=== PATIENT | female | born 1950 | race Caucasian/White ===

== ENCOUNTER 2023-03-11 11:21 | Outpatient (OUT) | payer MEDICARE, OTHER, SELFPAY ==
--- NOTE | 2023-03-11 11:40 | MM_ITS ---
Patient Name: IQRA WALKER MR#: [id number] : 1950 Exam Date: 03/11/2023 Ordering Doctor: Non-Staff Physician RADIOLOGY REPORT PROCEDURE: MM TOMOSYNTHESIS SCREENING RT COMPARISON: MG MAMM SCREEN RT 3D CAD, 02/10/2022. INDICATIONS: screening Calculator Name NCI Breast Cancer Risk Assessment Tool 5 Year Breast Cancer Risk n/a% Lifetime Breast Cancer Risk n/a% Personal Breast Cancer Yes, Left with mastectomy, Age 63 Personal Ovarian Cancer No Treatments None Family Cancers Grandmother-maternal with colon cancer at age 70. LOCATION: [facility] BREAST COMPOSITION: Heterogeneously dense,which may obscure small masses. FINDINGS: DIAGNOSTIC CATEGORY 2--BENIGN FINDING. NO CHANGE FROM COMPARISON. RIGHT BREAST: No significant suspicious finding. Scattered benign-appearing nodules are present. Scattered benign-appearing calcifications are present. RECOMMENDATIONS: ROUTINE MAMMOGRAM AND CLINICAL EVALUATION IN 12 MONTHS. PLEASE NOTE: A NORMAL MAMMOGRAM DOES NOT EXCLUDE THE POSSIBILITY OF BREAST CANCER. A CLINICALLY SUSPICIOUS PALPABLE LUMP SHOULD BE BIOPSIED. Dictated by: Ari Escobar MD on 03/11/2023 at 12:40 Approved by: Ari Escobar MD on 03/11/2023 at 12:41
== END 2023-03-11 11:22 | disposition home or self-care (01) ==
LOC: MAMMO 11:21
DX: Z12.31 Encounter for screening mammogram for malignant neoplasm of breast (principal); Z85.3 Personal history of malignant neoplasm of breast; Z80.0 Family history of malignant neoplasm of digestive organs
CPT/HCPCS: 77063; 77067

== ENCOUNTER 2024-03-13 10:00 | Outpatient (OUT) | payer MEDICARE, OTHER, SELFPAY ==
--- NOTE | 2024-03-13 10:05 | MM_ITS ---
Patient Name: IQRA WALKER MR#: [id number] : 1950 Exam Date: 03/13/2024 Ordering Doctor: Non-Staff Physician RADIOLOGY REPORT PROCEDURE: MM TOMOSYNTHESIS SCREENING RT COMPARISON: MG MAMM SCREEN RT 3D CAD, 02/10/2022. MM TOMOSYNTHESIS SCREENING RT, 03/11/2023. INDICATIONS: Screening Calculator Name NCI Breast Cancer Risk Assessment Tool 5 Year Breast Cancer Risk n/a% Lifetime Breast Cancer Risk n/a% Personal Breast Cancer Yes, Left with mastectomy, Age 63 Personal Ovarian Cancer No Treatments None Family Cancers Grandmother-maternal with colon cancer at age 70. LOCATION: [facility] BREAST COMPOSITION: The breasts are heterogeneously dense,which may obscure small masses. FINDINGS: DIAGNOSTIC CATEGORY 2--BENIGN FINDING. NO CHANGE FROM COMPARISON. Scattered benign-appearing calcifications are present. Scattered benign-appearing lymph nodes are present. RIGHT BREAST: No significant suspicious finding. LEFT BREAST: No significant suspicious finding. RECOMMENDATIONS: ROUTINE MAMMOGRAM AND CLINICAL EVALUATION IN 12 MONTHS. PLEASE NOTE: A NORMAL MAMMOGRAM DOES NOT EXCLUDE THE POSSIBILITY OF BREAST CANCER. A CLINICALLY SUSPICIOUS PALPABLE LUMP SHOULD BE BIOPSIED. Dictated by: Ari Escobar MD on 03/13/2024 at 11:15 Approved by: Ari Escobar MD on 03/13/2024 at 11:16
--- OUTSIDE RECORDS SUMMARY | 2024-03-13 10:06 | XMS_ITS | CCD ---
Author Organization [facility] ion [facility] Care Team Providers Care Instrumental Teacher Name Role Phone BASSEM TATE Admitting Unavailable BASSEM TATE Attending Unavailable YADIRA SEALS Referring Unavailable YADIRA SEALS Primary Care Unavailable EDUIN MARTINEZ Referring Unavailable YADIRA SEALS Primary Care Unavailable SHAVON MEJIA Attending Unavailable Yadira Seals Primary Care Provider Yadira Seals Primary Care Provider Unavailthee Villalba MD, Aline Primary Care Provider [phone] GRIS BORRERO Referring Unavailable NARRA, ALINE Primary Care Unavailable Deejay BERNARD, Aline Primary [facility] RAMIREZ Primary Care Unavailable DR Eduin Malloy Consulting Unavailable NARRA, ALINE Attending Unavailable NARRA, ALINE Admitting Unavailable NARRA, ALINE Consulting Unavailable Toneya , Aline Primary Care Provider ALINE FERRARI Attending Unavailable NARRA, ALINE Referring Unavailable NARRA, ALINE Primary Care Unavailable ALINE FERRARI Attending Unavailable NARRA, ALINE Referring Unavailable NARRA, ALINE Primary Care Unavailable NARRA, ALINE Referring Unavailable NARRA, ALINE Primary Care Unavailable NARRA, ALINE Referring Unavailable NARRA, ALINE Primary Care Unavailable BIALECKIFOXMARYAM Referring Unavailable NARRA, ALINE Primary Care Unavailable NARRA, ALINE Referring Unavailable NARRA, ALINE Primary Care Unavailable NARRA, ALINE Attending Unavailable NARRA, ALINE Referring Unavailable NARRA, ALINE Primary Care Unavailable NARRA, ALINE Referring Unavailable NARRA, ALINE Primary Care Unavailable NARRA, ALINE Attending Unavailable NARRA, ALINE Referring Unavailable NARRA, ALINE Primary Care Unavailable NARRA, ALINE Attending Unavailable NARRA, ALINE Referring Unavailable NARRA, ALINE Primary Care Unavailable Allergies Allergy Classification Reported Allergen(s) Allergy Type Date of Onset Reaction(s) Facility Benzodiazepines (1 source) Midazolam Drug Allergy 3 [facility] Opioid Agonists (1 source) Meperidine Drug Allergy 3 [facility] Penicillins (antibiotic) (1 source) Penicillins Drug Allergy 9 [facility] Sulfonamides (antibiotic) (1 source) Sulfonamides (Antibiotic) Drug Allergy 9 [facility] (11 sources) Penicillins; Translations: [PENICILLINS] Propensity to adverse reactions to drug 4 [place], [place] (6 sources) Sulfonamides (Antibiotic) Propensity to adverse reactions to drug 9 [place], [place] (1 source) Meperidine Drug Allergy 3 [facility] (1 source) Midazolam Drug Allergy 3 [facility] (1 source) Penicillins Drug allergy (disorder) 3 [facility] (1 source) Sulfonamides (Antibiotic) Drug allergy (disorder) 3 [facility] (12 sources) Penicillins Propensity to adverse reactions to drug 4 [facility] (17 sources) Sulfonamides (Antibiotic); Translations: [SULFA (SULFONAMIDE ANTIBIOTICS)] Propensity to adverse reactions to drug 4 [facility] Medications Current Medications Medication Drug Class(es) Dates Sig (Normalized) Sig (Original) acetaminophen 325 mg oral tablet (7 sources) acetaminophen (TYLENOL) 325 MG tablet Take 650 mg by mouth as needed for Pain 0 Active acetaminophen 325 mg / butalbital 50 mg / caffeine 40 mg oral tablet (13 sources) Barbiturate, Central Nervous System Stimulant, Methylxanthine Start: 10-21-2023 take 1 tablet by mouth once daily as needed for headache butalbital-acetami nophen-caff (FIORICET, ESGIC) 50-325-40 mg per tablet Indications: Migraine without aura and without status migrainosus, not intractable TAKE 1 TABLET BY MOUTH ONCE DAILY NEEDED FOR HEADACHE(S) ; DO NOT EXCEED 4 TABLETS A WEEK 48 tablet 1 10/21/2023 Active Start: 12-15-2022 take 1 tablet by nell th once daily as needed for headache cfwjobtdsj-jidqfiudmezif-swte (FIORICET, ESGIC) 50-325-40 mg per tablet Indications: Migraine without aura and without status migrainosus, not intractable TAKE 1 TABLET BY MOUTH ONCE DAILY NEEDED FOR HEADACHE(S) ; DO NOT EXCEED 4 TABLETS A WEEK 48 tablet 1 12/15/2022 Active Start: 02-08-2020 butalbital-estefanía taminophen-caffeine (FIORICET, ESGIC) 50-325-40 MG per tablet Indications: Chronic migraine without aura, with intractable migraine, so stated, with status migrainosus Take one tablet at headache onset. Limit one tablet daily or four tablets in a week 90 tablet 1 02/08/2020 Active amiodarone hydrochloride 200 mg oral tablet (5 sources) Antiarrhythmic take 1 tablet by mouth once daily amiodarone (CORDARONE) 200 MG tablet Take 200 mg by mouth daily 0 Active anastrozole 1 mg oral tablet (6 sources) Aromatase Inhibitor take 1 tablet by mouth once daily anastrozole (ARIMIDEX) 1 MG tablet Take 1 mg by mouth daily 0 Active apixaban 5 mg oral tablet (14 sources) Factor Xa Inhibitor Start: take 1 tablet by mouth in the morning ELIQUIS 5 mg tablet Indications: Atrial flutter with rapid ventricular response (CMS-HCC) TAKE 1 TABLET BY MOUTH IN THE MORNING AND 1 TABLET BEFORE BEDTIME 180 tablet 01/26/2024 Active Start: 09-28-2023 End: 01-26-2024 take 1 tablet by mouth in the morning, then take 1 tablet by mouth at bedtime apixaban (ELIQUIS) 5 mg tablet Indications: Atrial flutter with rapid ventricular response (CMS-HCC) Take 1 tablet (5 mg total) by mouth in the morning and 1 tablet (5 mg total) before bedtime. 180 tablet 1 09/28/2023 01/26/2024 Discontinued Start: 08-31-2022 End: 03-05-2023 take 1 tablet by mouth in the morning, then take 1 tablet by mouth at bedtime apixaban (ELIQUIS) 5 mg tablet Indications: Atrial flutter with rapid ventricular response (CMS-HCC) Take 1 tablet (5 mg total) by mouth in the morning and 1 tablet (5 mg total) before bedtime. 180 tablet 2 03/05/2023 Active aspirin 81 mg oral tablet (7 sources) Platelet Aggregation Inhibitor, Nonsteroidal Anti-inflammatory Drug take 1 tablet by mouth once daily aspirin 81 MG tablet Take 81 mg by mouth daily 0 Active Bisacodyl (6 sources) Stimulant Laxative Bisacodyl (LAXATIVE PO) Take by mouth as needed 0 Active calcium carbonate 1500 mg / cholecalciferol 200 unt oral tablet (19 sources) Vitamin D take 1 tablet by mouth once in the evening calcium carbonate-vitamin D3 600 mg(1,500mg) -200 units per tablet Take 1 tablet by mouth in the evening. Active take 1 tablet by mouth once tisha y calcium carbonate-vitamin D3 (CALCIUM 600+D3) 600-400 MG-UNIT TABS Take 1 tablet by mouth daily 0 Active take 1 tablet by mouth once tisha y calcium carbonate-vitamin D3 (CALCIUM 600+D3) 600-400 MG-UNIT TABS Take 1 tablet by mouth daily 0 Active cholecalciferol 0.125 mg ora l capsule (19 sources) Vitamin D cholecalciferol, vitamin D3, (VITAMIN D3) 5,000 units capsule Take 2,000 Units by mouth daily. Active take 1 capsule by mouth once marisel ly Cholecalciferol (VITAMIN D3) 2000 units CAPS Take 2,000 Units by mouth daily 0 Active citalopram 10 mg oral tablet (6 sources) Serotonin Reuptake Inhibitor take 0.5 tablet by mouth every other day citalopram (CELEXA) 10 MG tablet Indications: every other day half pill tapering Take 10 mg by mouth daily Indications: every other day half pill tapering 0 Active take 1 tablet by mouth once tisha y citalopram (CELEXA) 10 MG tablet Take 10 mg by mouth daily 0 Active clindamycin 150 mg oral capsule (2 sources) Lincosamide Antibacterial Start: 12-07-2023 take 1 capsule by mouth three times daily clindamycin (CLEOCIN) 150 mg capsule Take 1 capsule (150 mg total) by mouth 3 (three) times a day. 12/07/2023 Active clobetasol propionate 0.5 mg/ml topical cream (7 sources) Corticosteroid clobetasol (TEMOVATE) 0.05 % cream Apply topically 2 times daily as needed Apply topically 2 times daily. 0 Active docosahexaenoic acid 120 mg / eicosapentaenoic acid 180 mg oral capsule (1 source) take 1 capsule by mouth once daily [place] 3 1000 MG CAPS Take 1,000 mg by mouth daily 0 Active docusate sodium 100 mg oral capsule (18 sources) take 1 capsule by mouth in the morning, then take 1 capsule by mouth at bedtime docusate sodium (COLACE) 100 mg capsule Take 1 capsule (100 mg total) by mouth in the morning and 1 capsule (100 mg total) before bedtime. Active Docusate Calcium (STOOL SOFTENER PO) Take by mouth as needed 0 Active famotidine 20 mg oral tablet (7 sources) Histamine-2 Receptor Antagonist take 1 tablet by mouth once daily famotidine (PEPCID) 20 MG tablet Take 20 mg by mouth daily 0 Active fluticasone propionate 0.81225 mg/mg topical ointment (18 sources) Corticosteroid fluticasone (CUTIVATE) 0.005 % ointment Place on the skin as needed. Active take 1 spray(s) nasa l route twice daily as needed for rhinitis fluticasone (FLONASE) 50 MCG/ACT nasal spray 1 spray by Each Nostril route 2 times daily as needed for Rhinitis 0 Active hydroCHLOROthiazide 25 mg / spironolactone 25 mg oral tablet (5 sources) Thiazide Diuretic, Aldosterone Antagonist take 1 tablet by mouth once daily spironolactone-hydrochlorothiazide (ALDACTAZIDE) 25-25 MG per tablet Take 1 tablet by mouth daily 0 Active hydroxychloroquine sulfate 200 mg oral tablet (19 sources) Antimalarial, Antirheumatic Agent St ar t: 18 take 1 tablet by mouth in the morning hydroxychloroquine (PLAQUENIL) 200 mg tablet Take 1 tablet (200 mg total) by mouth in the morning. 04/21/2017 Active ipratropium bromide 0.042 mg/actuat metered dose nasal spray (12 sources) Anticholinergic St ar t: - 23 take 2 spray(s) nasal route at bedtime ipratropium (ATROVENT) 42 mcg (0.06 %) nasal spray Indications: Vasomotor rhinitis Administer 2 sprays into each nostril in the morning and at bedtime. 15 mL 2 12/15/2022 Active levETIRAcetam 750 mg oral tablet (5 sources) take 1 tablet by mouth twice daily levETIRAcetam (KEPPRA) 750 MG tablet Take 750 mg by mouth 2 times daily 0 Active loratadine 10 mg oral tablet (5 sources) take 1 tablet by mouth once daily loratadine (CLARITIN) 10 MG tablet Take 10 mg by mouth daily 0 Active 24 hr metoprolol succinate 25 mg extended release oral tablet (19 sources) beta-Adrenergic Wilber St ar t: 09 0 4- 20 24 take 1 tablet by mouth every twenty-fo ur hours in the morning metoprolol succinate XL (TOPROL XL) 25 mg 24 hr tablet Indications: Atypical atrial flutter (CMS-HCC) TAKE 1 TABLET BY MOUTH IN THE MORNING 90 tablet 1 11/03/2023 Active Start: 02-01-2023 End: 03-05-2023 take 1 tablet by mouth every twenty-four hours in the morning metoprolol succinate XL (TOPROL XL) 25 mg 24 hr tablet Indications: Atypical atrial flutter (CMS-HCC) Take 1 tablet (25 mg total) by mouth in the morning. 90 tablet 2 03/05/2023 Active take 1 tablet by mouth once tisha y metoprolol succinate (TOPROL XL) 25 MG extended release tablet Take 25 mg by mouth daily 0 Active Multiple Vitamins-Minerals (MULTIVITAMIN PO) (5 sources) Multiple Vitamin s-Minerals (MULTIVITAMIN PO) Take by mouth as needed 0 Active NONFORMULARY (1 source) NONFORMULARY Sto ol softener/laxative patient takes one tablet in the morning and one tablet in the evening. 0 Active omega-3 acid ethyl esters (senior living) 1000 mg oral capsule (6 sources) take 1 capsule by mouth once daily [place] 3 1000 MG CAPS Take 1,000 mg by mouth daily 0 Active omega-3 fatty acids-fish oil 300-1,000 mg capsule (12 sources) take 2 capsules by mouth in the morning omega-3 fatty acids-fish oil 300-1,000 mg capsule Take 2 capsules (2 g total) by mouth in the morning. Active take 2 capsules by mouth in the morning omega-3 fatty acids-fish oil 300-1,000 mg capsule Take 2 capsules (2 g total) by mouth in the morning. 0 Active omeprazole 20 mg delayed release oral capsule (8 sources) Proton Pump Inhibitor Start: 05-10-2023 End: 05-10-2023 take 1 capsule by mouth in the morning, then take 1 capsule by mouth at bedtime omeprazole (PriLOSEC) 20 mg capsule Take 1 capsule (20 mg total) by mouth in the morning and 1 capsule (20 mg total) before bedtime. 180 capsule 3 05/10/2023 Active pantoprazole 40 mg delayed release oral tablet (8 sources) Proton Pump Inhibitor Start: 10-29-2022 take 1 tablet by mouth in the morning pantoprazole (PROTONIX) 40 mg EC tablet TAKE 1 TABLET BY MOUTH IN THE MORNING AND 1 TABLET BY MOUTH IN THE EVENING BEFORE MEALS 180 tablet 3 10/29/2022 Active verapamil hydrochloride 180 mg extended release oral tablet (1 source) Calcium Channel Wilber Start: 03-02-2019 verapamil (CALAN SR) 180 MG extended release tablet Take 180 mg by mouth 0 03/02/2019 Active warfarin sodium 2 mg oral tablet (6 sources) Vitamin K Antagonist take 0.5 tablet by mouth in the evening warfarin (COUMADIN) 2 MG tablet Take 2 mg by mouth See Admin Instructions / tab Mon, Wed & Fri full tab Sun, Tue, Thur & Sat at 5 pm 0 Active Problems Active Problems Problem Classification Problem Date Documented Date Episodic/Chronic Acute cerebrovascular disease (1 source) Cerebrovascular accident; Translations: [Cerebral infarction, unspecified] Chronic Cancer of breast (1 source) Personal history of malignant neoplasm of breast; Translations: [PERS HX MALIGNANT NEOPLASM BREAST] Onset: 02-14-2022 Episodic Cardiac dysrhythmias (20 sources) Atrial flutter; Translations: [Unspecified atrial flutter] Onset: 04-28-2017 03-05-2023 Chronic Epilepsy; convulsions (5 sources) Seizure disorder; Translations: [Epilepsy, unspecified, not intractable, without status epilepticus] Onset: 07-13-2023 07-13-2023 Chronic Esophageal disorders (12 sources) Gastroesophageal reflux disease; Translations: [Gastro-esophageal reflux disease without esophagitis] Onset: 03-11-2017 03-11-2017 Chronic Essential hypertension (13 sources) Essential hypertension; Translations: [Essential (primary) hypertension] Onset: 03-11-2017 03-11-2017 Chronic Genitourinary symptoms and ill-defined conditions (2 sources) Unspecified abnormal findings in urine; Translations: [Unspecified abnormal findings in urine] Onset: 03-07-2024 Episodic Heart valve disorders (20 sources) Nonrheumatic mitral (valve) insufficiency; Translations: [Presence of prosthetic heart valve] Onset: 04-04-2014 Resolved: 10-08-2022 08-21-2022 Chronic Immunity disorders (13 sources) Patient immunocompromised; Translations: [Immunodeficiency, unspecified] Onset: 03-17-2021 03-17-2021 Chronic Other circulatory disease (12 sources) Raynaud's phenomenon; Translations: [Raynaud's syndrome without gangrene] Onset: 05-01-2019 05-01-2019 Chronic Other inflammatory condition of skin (12 sources) Lupus erythematosus; Translations: [Discoid lupus erythematosus] Onset: 04-28-2017 04-28-2017 Chronic Other nervous system disorders (3 sources) Other chronic pain; Translations: [Other chronic pain] Onset: 03-24-2023 Chronic Other non-traumatic joint disorders (1 source) Chronic pain of left upper limb; Translations: [Pain in left shoulder] 03-24-2023 Episodic Other screening for suspected conditions (not mental disorders or infectious disease) (4 sources) Encounter for screening mammogram for malignant neoplasm of breast; Translations: [ENC SCR MAMMO MALIG NEOPLASM BREAST] Onset: 02-10-2022 Episodic Residual codes; unclassified (1 source) Family history of malignant neoplasm of digestive organs; Translations: [FAM HX MALIG NEOPLASM DIGESTIV ORGN] Onset: 02-14-2022 Episodic Residual codes; unclassified (1 source) Acquired absence of left breast and nipple; Translations: [ACQUIRED ABSENCE LT BREAST AND NIPPLE] Onset: 02-14-2022 Episodic Unclassified (2 sources) DX Onset: 06-24-2018 Unclassified (12 sources) Normal coronary arteries; Translations: [Normal coronary arteries] Onset: 01-03-2019 01-03-2019 Unclassified (1 source) Annual Exam Onset: 03-07-2024 Past or Other Problems Problem Classification Problem Date Documented Date Episodic/Chronic Cancer of breast (20 sources) Malignant neoplasm of upper-inner quadrant of female breast; Translations: [Malignant neoplasm of upper-inner quadrant of unspecified female breast] Onset: 04-28-2017 Resolved: 07-13-2023 04-28-2017 Chronic Cardiac dysrhythmias (15 sources) Palpitations; Translations: [Bradycardia] Onset: 10-26-2017 Resolved: 01-03-2019 01-03-2019 Episodic Headache; including migraine (12 sources) Migraine; Translations: [Migraine, unspecified, not intractable, without status migrainosus] Onset: 04-28-2017 Resolved: 01-06-2018 01-06-2018 Chronic Immunizations and screening for infectious disease (2 sources) Patient encounter status; Translations: [Encounter for immunization] Onset: 12-06-2023 12-03-2023 Episodic Mood disorders (12 sources) Mood disorders Onset: 12-15-2022 Resolved: 07-13-2023 12-15-2022 Other circulatory disease (12 sources) History of cerebrovascular accident; Translations: [Personal history of transient ischemic attack (TIA), and cerebral infarction without residual deficits] Onset: 08-26-2022 10-08-2022 Episodic Other circulatory disease (1 source) Personal history of transient ischemic attack (TIA), and cerebral infarction without residual deficits; Translations: [Personal history of transient ischemic attack (TIA), and cerebral infarction without residual deficits] Onset: 10-08-2022 Episodic Other non-traumatic joint disorders (3 sources) Pain in left shoulder; Translations: [Pain in left shoulder] Onset: 03-24-2023 Episodic Residual codes; unclassified (14 sources) History of repair of mitral valve; Translations: [Other specified postprocedural states] Onset: 09-23-2018 09-23-2018 Episodic Residual codes; unclassified (14 sources) History of tricuspid valve repair; Translations: [Other specified postprocedural states] Onset: 09-23-2018 09-23-2018 Episodic Residual codes; unclassified (14 sources) History of maze procedure for atrial fibrillation; Translations: [Other specified postprocedural states] Onset: 09-23-2018 09-23-2018 Episodic Residual codes; unclassified (12 sources) Risk of subacute bacterial endocarditis; Translations: [Need for SBE (subacute bacterial endocarditis) prophylaxis] Onset: 05-01-2019 05-01-2019 Episodic Residual codes; unclassified (2 sources) Other specified postprocedural states; Translations: [Other specified postprocedural states] Onset: 09-23-2018 Episodic Syncope (20 sources) Vasovagal syncope; Translations: [Syncope and collapse] Onset: 12-18-2014 Resolved: 01-06-2018 04-05-2018 Episodic Results Test Name Value Interpretation Reference Range Facility URINALYSISon 03-07-2024 Bilirubin Ql (U) Negative Normal NEG [facility] Comment on above: Performed By: #### U A #### [facility] ([id number]) [address], [address] [place] [address] BLOOD/HGB Negative Normal NEG [facility] Comment on above: Performed By: #### U A #### [facility] ([id number]) [address], [address] [place] [address] Color (U) YELLOW Normal YELLOW [facility] Comment on above: Performed By: #### U A #### [facility] ([id number]) [address], [address] [place] [address] Glucose Ql (U) Negative Normal NEG [facility] Comment on above: Performed By: #### U A #### [facility] ([id number]) [address], [address] [place] [address] Ketones Ql (U) Negative Normal NEG [facility] Comment on above: Performed By: #### U A #### [facility] ([id number]) [address], [address] [place] [address] Leukocyte esterase Test strip Ql (U) MODERATE Abnormal NEG [facility] Comment on above: Performed By: #### U A #### [facility] ([id number]) [address], [address] [place] [address] MUCOUS PRESENT Abnormal NONE [facility] Comment on above: Performed By: #### U A #### [facility] ([id number]) [address], [address] [place] [address] Nitrite Ql (U) Negative Normal NEG [facility] Comment on above: Performed By: #### U A #### [facility] ([id number]) [address], [address] [place] [address] pH (U) 6.5 [pH] Normal 5.0-8.5 [facility] Comment on above: Performed By: #### U A #### [facility] ([id number]) [address], [address] [place] [address] Protein Ql (U) Negative Normal NEG [facility] Comment on above: Performed By: #### U A #### [facility] ([id number]) [address] [place] [address] R.B.CELLS <1 Normal 0-5 [facility] Comment on above: Performed By: #### U A #### [facility] ([id number]) [address] [address] [place] [address] Specific gravity (U) [Rel density] 1.008 Normal 1.003-1.035 [facility] Comment on above: Performed By: #### U A #### [facility] ([id number]) [address] [place] [address] SQUAMOUS EPITHELIUM <1 Normal 0-5 [facility] Comment on above: Performed By: #### U A #### [facility] ([id number]) [address] [address] [place] [address] TURBIDITY CLEAR Normal CLEAR [facility] Comment on above: Performed By: #### U A #### [facility] ([id number]) [address] [address] [place] [address] Urinalysis dipstick W Reflex Microscopic panel (U) URINE RECEIVED WITHOUT PRESERVATIVE-DELAYS IN TRANSPORT MAY AFFECT RESULTS.INTERPRET WITH CAUTION AND CLINICAL CORRELATION IS RECOMMENDED. Normal [facility] Comment on above: Performed By: #### U A #### [facility] ([id number]) [address] [place] [address] Urobilinogen (U) [Mass/Vol] mg/dL Normal <1.1 [facility] Comment on above: Performed By: #### U A #### [facility] ([id number]) [address] [facility] [place] [address] W.B.CELLS 35 /hpf High 0-5 [facility] Comment on above: Performed By: #### U A #### [facility] ([id number]) [address] [facility] [place] [address] URINE CULTUREon 03-07-2024 Bacteria identified Cx Nom (U) CULTURE RESULTS 10,000 to 50,000 ORGANISMS/mL ESCHERICHIA COLI [ S = SUSCEPTIBLE R = RESISTANT I = INTERMEDIATE S-DO = Susceptible-dose dependent NS = Non-suscceptible NO = No Interpretation ] Organism: ESCHERICHIA COLI Antibiotic Interpretation SANDRA Status AMPICILLIN S <=2 F AMP/SULBACTAM S <=2/1 F CEFAZOLIN S <=4 F CEFTRIAXONE S <=0.25 F CIPROFLOXACIN S <=0.25 F GENTAMICIN S <=1 F LEVOFLOXACIN S <=0.12 F NITROFURANTOIN S <=16 F PIPERACIL/TAZOBACTAM S <=4 F TOBRAMYCIN S <=1 F TRIMETH/SULFAMETHOXA ZOLE S <=1/19 F Susceptible [facility] Comment on above: Performed By: #### 6 30-4 #### [facility] ([id number]) [address] [place] [address] CBC AND AUTO DIFFon 03-06-19 25 ABSOLUTE BASOPHIL 0.0 X10E9/L Normal 0.0-0.2 [facility] Comment on above: Performed By: #### C FLASH CMP #### [facility] ([id number]) [address] [facility] [place] [address] ABSOLUTE NEUTROPHIL 2.7 X10E9/L Normal 1.5-6.6 [facility] Comment on above: Performed By: #### C ALPA VIDALES #### [facility] ([id number]) [address] [place] [address] Basophils/100 WBC (Bld) 0.9 % Normal [facility] Comment on above: Performed By: #### C FLASH, CMP #### [facility] ([id number]) [address] [place] [address] Eosinophils (Bld) [#/Vol] 0.1 10*3/uL Normal 0.0-0.4 [facility] [facility] Comment on above: Performed By: #### C FLASH, CMP #### [facility] ([id number]) [address], [address] [place] [address] Eosinophils/100 WBC (Bld) 2.0 % Normal [facility] Comment on above: Performed By: #### C FLASH, CMP #### [facility] ([id number]) [address], [address] [place] [address] Erythrocyte distribution width (RBC) [Ratio] 13.8 % Normal 11.5-15.0 [facility] Comment on above: Performed By: #### C FLASH, CMP #### [facility] ([id number]) [address], [address] [place] [address] Hematocrit (Bld) [Volume fraction] 42.6 % Normal 35-47 [facility] Comment on above: Performed By: #### C FLASH, CMP #### [facility] ([id number]) [address], [address] [place] [address] Hemoglobin (Bld) [Mass/Vol] 14.1 g/dL Normal 11.7-15.5 [facility] Comment on above: Performed By: #### C FLASH, CMP #### [facility] ([id number]) [address], [address] [place] [address] Lymphocytes (Bld) [#/Vol] 1.7 10*3/uL Normal 1.0-3.5 [facility] Comment on above: Performed By: #### C BCA, CMP #### [facility] ([id number]) [address], [address] [place] [address] Lymphocytes/100 WBC (Bld) 33.4 % Normal [facility] Comment on above: Performed By: #### C BCA, CMP #### [facility] ([id number]) [address], [address] [place] [address] MCH (RBC) [Entitic mass] 29.9 pg Normal 27-34 [facility] Comment on above: Performed By: #### C BCA, CMP #### [facility] ([id number]) [address], [address] [place] [address] MCHC (RBC) [Mass/Vol] 33.2 g/dL Normal 32-36 [facility] Comment on above: Performed By: #### C BCA, CMP #### [facility] ([id number]) [address], [address] [place] [address] MCV (RBC) [Entitic vol] 90 fL Normal 80-100 [facility] Comment on above: Performed By: #### C BCA, CMP #### [facility] ([id number]) [address], [address] [place] [address] Monocytes (Bld) [#/Vol] 0.5 10*3/uL Normal 0-0.9 [facility] Comment on above: Performed By: #### C BCA, CMP #### [facility] ([id number]) [address] [place] [address] Monocytes/100 WBC (Bld) 9.5 % Normal [facility] Comment on above: Performed By: #### C BCA, CMP #### [facility] ([id number]) [address], [address] [place] [address] Neutrophils/100 WBC (Bld) 54.2 % Normal [facility] Comment on above: Performed By: #### C FLASH, CMP #### [facility] ([id number]) [address], [facility] [address] [place] [address] Platelet mean volume (Bld) [Entitic vol] 8.6 fL Normal 7-12 [facility] Comment on above: Performed By: #### C FLASH, CMP #### [facility] ([id number]) [address] [address] [place] [address] Platelets (Bld) [#/Vol] 185 10*3/uL Normal 150-450 [facility] Comment on above: Performed By: #### C FLASH, CMP #### [facility] ([id number]) [address], [facility] [address] [place] [address] RBC COUNT 4.72 X10E12/L Normal 3.80-5.20 [facility] Comment on above: Performed By: #### C FLASH, CMP #### [facility] ([id number]) [address] [address] WBC (Bld) [#/Vol] 5.0 10*3/uL Normal 4.0-11.0 [facility] Comment on above: Performed By: #### C FLASH, CMP #### [facility] ([id number]) [address], [facility] [address] [place] [address] COMPREHENSIVE METABOLIC PANE Porfirio 03-06-2024 Albumin [Mass/Vol] 4.1 g/dL Normal 3.2-5.3 [facility] Comment on above: Performed By: #### C BCA, CMP #### [facility] ([id number]) [address] [address] [place] [address] ALP [Catalytic activity/Vol] 78 U/L Normal 39-130 [facility] Comment on above: Performed By: #### C BCA, CMP #### [facility] ([id number]) [address] [place] [address] ALT [Catalytic activity/Vol] 16 U/L Normal 0-31 [facility] Comment on above: Performed By: #### C BCA, CMP #### [facility] ([id number]) [address] [place] [address] Anion gap [Moles/Vol] 8 mmol/L Normal 5-15 [facility] Comment on above: Performed By: #### C BCA, CMP #### [facility] ([id number]) [address] [place] [address] AST [Catalytic activity/Vol] 23 U/L Normal 0-41 [facility] Comment on above: Performed By: #### C BCA, CMP #### [facility] ([id number]) [address] [place] [address] Bilirubin [Mass/Vol] 0.5 mg/dL Normal 0.3-1.2 [facility] Comment on above: Performed By: #### C BCA, CMP #### [facility] ([id number]) [address] [place] [address] Calcium [Mass/Vol] 9.8 mg/dL Normal 8.5-10.5 [facility] Comment on above: Performed By: #### C BCA, CMP #### [facility] ([id number]) [address], [address] [place] [address] Chloride [Moles/Vol] 100 mmol/L Normal 98-109 [facility] Comment on above: Performed By: #### C BCA, CMP #### [facility] ([id number]) [address] [place] [address] CO2 [Moles/Vol] 30 mmol/L Normal 22-32 [facility] Comment on above: Performed By: #### C BCA, CMP #### [facility] ([id number]) [address] [address] [place] [address] Creatinine [Mass/Vol] 0.72 mg/dL Normal 0.40-1.00 [facility] Comment on above: Result Comment: METH OD TRACEABLE TO IDMS STANDARD Performed By: #### C BCA, CMP #### [facility] ([id number]) [address] [address] GFR/1.73 sq M.predicted among non-blacks MDRD (S/P/Bld) [Vol rate/Area] 87 mL/min/{1.73_m2} Normal >59 [facility] Comment on above: Result Comment: Reported eGFR is based on the CKD-EPI 2020 equation that does not use a race coefficient. Performed By: #### C BCA, CMP #### [facility] ([id number]) [address] [address] [place] [address] Glucose [Mass/Vol] 87 mg/dL Normal 65-99 [facility] Comment on above: Performed By: #### C BCA, CMP #### [facility] ([id number]) [address] [address] [place] [address] Potassium [Moles/Vol] 4.2 mmol/L Normal 3.5-5.0 [facility] Comment on above: Performed By: #### C BCA, CMP #### [facility] ([id number]) [address] [address] [place] [address] Protein [Mass/Vol] 6.9 g/dL Normal 6.0-8.0 [facility] Comment on above: Performed By: #### C BCA, CMP #### [facility] ([id number]) [address] [address] [place] [address] Sodium [Moles/Vol] 138 mmol/L Normal 134-146 [facility] Comment on above: Performed By: #### C BCA, CMP #### [facility] ([id number]) [address], [address] [address] Urea nitrogen [Mass/Vol] 16 mg/dL Normal 5-27 [facility] Comment on above: Performed By: #### C BCA, CMP #### [facility] ([id number]) [address], [address] [place] [address] ALT No additional P-5'-P [Ca talytic activity/Vol]on 06-01-2023 ALT [Catalytic activity/Vol] 19 U/L Normal 0-31 [facility] Comment on above: Performed By: #### 1 744-2, 1919-09 #### [facility] ([id number]) [address], [address] [place] [address] Melony 06-01-2023 AST [Catalytic activity/Vol] 22 U/L Normal 0-41 [facility] Comment on above: Performed By: #### 1 744-2, 1919-09 #### [facility] ([id number]) [address], [address] [address] XR SHOULDER LT MIN 2 VWSon 0 03-24-2023 XR SHOULDER LT MIN 2 VWS XR SHOULDER LT MIN 2 VWS XR SHOULDER LT MIN 2 VWS History: Chronic left shoulder pain Findings: There is no fracture, dislocation, or destructive lesion. Impression: * No acute findings. Consider MR if you suspect occult internal derangement Finalized by Ezequiel Alexander MD on 03/24/2023 3:22 PM [facility] XR Shoulder - left 2 Viewson 03-24-2023 XR SHOULDER LT MIN 2 VWS History: Chronic left shoulder pain Findings: There is no fracture, dislocation, or destructive lesion. Impression: * No acute findings. Consider MR if you suspect occult internal derangement Finalized by Ezequiel Alexander MD on 03/24/2023 3:22 PM [facility] Ezequiel Alexander MD - 03/24/2023 XR SHOULDER LT MIN 2 VWS History: Chronic left shoulder pain Findings: There is no fracture, dislocation, or destructive lesion. Impression: * No acute findings. Consider MR if you suspect occult internal derangement Finalized by Ezequiel Alexander MD on 03/24/2023 3:22 PM [facility] Study observation (narrative) [facility] X[facility] Shoulder - left 2 ViewsOr dered By: Ezequiel Alexander on 03-24-2023 [facility] Work Phone: MG MAMM SCREEN RT 3D CADon 1 04-13-2021 MG MAMM SCREEN RT 3D CAD Patient: DANILO WALKER Exam Date: 02/10/2022 : 1950 Gender:F Ordering : ALINE RUBIAshvin Admission #: [id number] Family : Order #: [id number] CLICK HERE TO VIEW EXAM RADIOLOGY REPORT PROCEDURE: MAMMOGRAM SCREENING RIGHT 3D CAD COMPARISON: [facility] MAMM SCR RT UNI W CAD, 01/29/2020. MG MAMM RT DIAG W CAD, 01/23/2019. DIGITIZED_MAMMO, 10/17/2008. MG MAMM SCREEN RT 3D CAD, 02/03/2021. INDICATIONS: Screening mammography Calculator Name NCI Breast Cancer Risk Assessment Tool 5 Year Breast Cancer Risk n/a% Lifetime Breast Cancer Risk n/a% Personal Breast Cancer Yes, Left with mastectomy Personal Ovarian Cancer No Treatments None Family Cancers Grandmother-maternal with colon cancer at age 70. LOCATION: [facility] [place] BREAST COMPOSITION: Heterogeneously dense,which may obscure small masses. FINDINGS: DIAGNOSTIC CATEGORY 2--BENIGN FINDING: RIGHT BREAST: No significant suspicious finding. Scattered benign-appearing calcifications are present. Stable axillary tail lymph nodes. No significant change has occurred. RECOMMENDATIONS: ROUTINE MAMMOGRAM AND CLINICAL EVALUATION IN 12 MONTHS. PLEASE NOTE: A NORMAL MAMMOGRAM DOES NOT EXCLUDE THE POSSIBILITY OF BREAST CANCER. A CLINICALLY SUSPICIOUS PALPABLE LUMP SHOULD BE BIOPSIED. Dictated by: Eduin Malloy M.D. on 02/10/2022 at 15:12 Approved by: Eduin Malloy M.D. on 02/10/2022 at 15:16 Normal [facility] Lipid PanelOrdered By: Gris Borrero on 10-07-2020 Cholesterol [Mass/Vol] 192 mg/dL <200 [employer] Phone: Comment on above: Cholesterol Guidelines: <200 Desirable 200-240 Borderline >240 Undesirable Cholesterol in HDL [Mass/Vol] 68 mg/dL >40 [employer] Phone: Comment on above: HDL Guidelines: <40 Undesirable 40-59 Borderline >59 Desirable Cholesterol in LDL [Mass/Vol] 111 mg/dL 0 - 130 mg/dL [employer] Phone: Comment on above: LDL Guidelines: <100 Desirable 100-129 Near to/above Desirable 130-159 Borderline >159 Undesirable Direct (measured) LDL and calculated LDL are not interchangeable tests. Cholesterol in VLDL [Mass/Vol] NOT REPORTED 1 - 30 mg/dL [employer] Phone: Cholesterol.total/Chol esterol in HDL [Mass ratio] 2.8 {ratio} <5 [employer] Phone: Triglyceride [Mass/Vol] 67 mg/dL <150 [employer] Phone: Comment on above: Triglyceride Guidelines: <150 Desirable 150-199 Borderline 200-499 High >499 Very high Based on AHA Guidelines for fasting triglyceride, November 2011. [employer] Phone: Lipid Profileon 10-07-2020 Cholesterol [Mass/Vol] 192 mg/dL Normal <200 [facility] Comment on above: Result Comment: Cholesterol Guidelines: <200 Desirable 200-240 Borderline >240 Undesirable Performed By: #### L IPR #### [facility] [address] [place] [address] Heat Transfer Technician: Jarvis Salas MD Cholesterol in HDL [Mass/Vol] 68 mg/dL Normal >40 [facility] Comment on above: Result Comment: HDL Guidelines: <40 Undesirable 40-59 Borderline >59 Desirable Performed By: #### L IPR #### [facility] [address] [place] [address] [id number] Heat Transfer Technician: Jarvis Saals MD Cholesterol in LDL [Mass/Vol] 111 mg/dL Normal 0-130 [facility] Comment on above: Result Comment: LDL Guidelines: <100 Desirable 100-129 Near to/above Desirable 130-159 Borderline >159 Undesirable Direct (measured) LDL and calculated LDL are not interchangeable tests. Performed By: #### L IPR #### [facility] [employer] [facility] [place] [address] Heat Transfer Technician: Jarvis Salas MD Cholesterol.total/Chol esterol in HDL [Mass ratio] 2.8 {ratio} Normal <5 [facility] Comment on above: Performed By: #### L IPR #### [facility] [employer] [facility] [place] [address] Heat Transfer Technician: Jarvis Salas MD Triglyceride [Mass/Vol] 67 mg/dL Normal <150 [facility] Comment on above: Result Comment: Triglyceride Guidelines: <150 Desirable 150-199 Borderline 200-499 High >499 Very high Based on AHA Guidelines for fasting triglyceride, November 2011. Performed By: #### L IPR #### [facility] [employer] [address] [place] [address] Heat Transfer Technician: Jarvis Salas MD Cholesterol,VLDL NOT REPORTED Normal 1-30 [facility] Comment on above: Performed By: #### L IPR #### [facility] [employer] [address] [place] [address] Heat Transfer Technician: Jarvis Salas MD Microscopic UrinalysisOrdere d By: Aline Villalba on 12-23-2018 - [employer] [place], [place] Amorphous, UA NOT REPORTED None [email or web address], [place] Bacteria, UA MANY Abnormal None [facility] [employer] [place], [place] Casts UA 0 TO 2 HYALINE Reference range defined for non-centrifuged specimen. [facility] [employer]- [place], [place] Crystals UA NOT REPORTED None /HPF [facility] [place] Epithelial Cells UA None [facility] [employer] [place], [place] Interpretation and review of laboratory results Abnormal [facility]- [place] Mucus, UA NOT REPORTED None [place], [place] Other Observations UA NOT REPORTED NOT REQ. [place] RBC, UA 0 TO 2 [place], [place] Comment on above: Reference range defi gopal for non-centrifuged specimen. Renal Epithelial, Urine NOT REPORTED 0 /HPF [place], [place] Trichomonas, UA NOT REPORTED None [facility] [place], [place] WBC, UA 20 TO 50 [place], [place] Yeast, UA NOT REPORTED None [place] UrinalysisOrdered By: Aline howard on 12-22-2018 Bilirubin Urine Negative NEGATIVE [place], [place] Color, UA YELLOW YELLOW [place], [place] Glucose, Ur Negative NEGATIVE [place] Interpretation and review of laboratory results Abnormal [place], [place] Ketones Ql (U) Negative NEGATIVE [place] Leukocyte esterase Test strip Ql (U) MODERATE Abnormal NEGATIVE [place] Nitrite, Urine Negative NEGATIVE [place] pH, UA 7.5 [place] Protein, UA Negative NEGATIVE [place] Specific [place], UA 1.009 [place], [place] Turbidity UA CLEAR CLEAR [place] Urinalysis Comments NOT REPORTED [place], [place] Urine Hgb Negative NEGATIVE [place], [place] Urobilinogen, Urine Normal Normal [place], [place] Riky 12-06-2018 ALT [Catalytic activity/Vol] 17 U/L 5 - 33 U/L [place] Melony 12-06-2018 AST [Catalytic activity/Vol] 22 U/L <32 [place] [employer] 12-06-2018 INR Coag (PPP) [Relative time] 2.2 {INR} [place] Comment on above: Therapeutic Range: Moderate Anticoagulant Intensity: INR = 2.0-3.0 High Anticoagulant Intensity: INR = 2.5-3.5 Interpretation and review of laboratory results Abnormal [place], [place] PT Coag (PPP) [Time] 21.8 s High [place] [employer] 11-15-2018 INR Coag (PPP) [Relative time] 2.7 {INR} [place] Comment on above: Therapeutic Range: Moderate Anticoagulant Intensity: INR = 2.0-3.0 High Anticoagulant Intensity: INR = 2.5-3.5 Interpretation and review of laboratory results Abnormal [facility] [place] PT Coag (PPP) [Time] 26.8 s [place] [employer] 10-27-2018 INR Coag (PPP) [Relative time] 1.9 {INR} [place] Comment on above: Therapeutic Range: Moderate Anticoagulant Intensity: INR = 2.0-3.0 High Anticoagulant Intensity: INR = 2.5-3.5 Interpretation and review of laboratory results Abnormal [facility] [place] PT Coag (PPP) [Time] 18.7 s [place] [employer] 10-17-2018 INR Coag (PPP) [Relative time] 1.6 {INR} [place] Comment on above: Therapeutic Range: Moderate Anticoagulant Intensity: INR = 2.0-3.0 High Anticoagulant Intensity: INR = 2.5-3.5 Interpretation and review of laboratory results Abnormal [facility] [place] PT Coag (PPP) [Time] 16.2 s [place], [place] CT CERVICAL SPINE WO CONTRAS Ton 10-03-2018 CT CERVICAL SPINE WO CONTRAST EXAMINATION: CT OF THE CERVICAL SPINE WITHOUT CONTRAST 10/02/2018 10:03 pm TECHNIQUE: CT of the cervical spine was performed without the administration of intravenous contrast. Multiplanar reformatted images are provided for review. Dose modulation, iterative reconstruction, and/or weight based adjustment of the mA/kV was utilized to reduce the radiation dose to as low as reasonably achievable. COMPARISON: None. HISTORY: ORDERING SYSTEM PROVIDED HISTORY: Fall TECHNOLOGIST PROVIDED HISTORY: Reason for Exam: fall Acuity: Acute Type of Exam: Initial FINDINGS: BONES/ALIGNMENT: There is no acute cervical spine fracture. There is normal alignment of the cervical spine. DEGENERATIVE CHANGES: Degenerative disc disease at C4-C5 and C5-C6. SOFT TISSUES: There is no prevertebral soft tissue swelling. IMPRESSION: No acute abnormality of the cervical spine. Interpreted by: Chioma Bunn MD Signed by: Chioma Bunn MD 10/02/18 Final result Normal [facility] CT HEAD WO CONTRASTon 2018 CT HEAD WO CONTRAST EXAMINATION: CT OF THE HEAD WITHOUT CONTRAST 10/02/2018 10:03 pm TECHNIQUE: CT of the head was performed without the administration of intravenous contrast. Dose modulation, iterative reconstruction, and/or weight based adjustment of the mA/kV was utilized to reduce the radiation dose to as low as reasonably achievable. COMPARISON: None. HISTORY: ORDERING SYSTEM PROVIDED HISTORY: Fall, anticoagulation TECHNOLOGIST PROVIDED HISTORY: Reason for Exam: fall Acuity: Acute Type of Exam: Initial FINDINGS: BRAIN/VENTRICLES: There is no acute intracranial hemorrhage, mass effect or midline shift. No abnormal extra-axial fluid collection. The nuñez-white differentiation is maintained without evidence of an acute infarct. There is no evidence of hydrocephalus. ORBITS: The visualized portion of the orbits demonstrate no acute abnormality. SINUSES: The visualized paranasal sinuses and mastoid air cells demonstrate no acute abnormality. SOFT TISSUES/SKULL: No acute abnormality of the visualized skull or soft tissues. IMPRESSION: No acute intracranial abnormality. Interpreted by: Enmanuel Lagos MD Signed by: Enmanuel Lagos MD 10/02/18 Final result Normal [facility] PTon 10-03-2018 INR Coag (PPP) [Relative time] 1.9 {INR} Normal [facility] Comment on above: Result Comment: Non-therapeutic Range: INR = 0.9-1.2 Therapeutic Range: Moderate Anticoagulant Intensity: INR = 2.0-3.0 High Anticoagulant Intensity: INR = 2.5-3.5 Performed By: #### P T #### [facility] [address] [facility] [address] [place], [place] [id number] Heat Transfer Technician: Bennett Knapp DO PT Coag (PPP) [Time] 21.7 s High 11.8-14.6 [facility] Comment on above: Performed By: #### P T #### [facility] [address] [facility] [place] [address] Heat Transfer Technician: Bennett Knapp DO PTon 07-03-2018 INR Coag (PPP) [Relative time] 2.6 {INR} Normal [facility] Comment on above: Result Comment: Non-therapeutic Range: INR = 0.9-1.2 Therapeutic Range: Moderate Anticoagulant Intensity: INR = 2.0-3.0 High Anticoagulant Intensity: INR = 2.5-3.5 Performed By: #### P T #### [facility] [address] [place], [place] [id number] Heat Transfer Technician: Willy Keene MD PT Coag (PPP) [Time] 27.8 s High 11.8-14.6 [facility] Comment on above: Performed By: #### P T #### [facility] [address] [place], [place] [id number] Heat Transfer Technician: Willy Keene MD Vital Signs Date Time Vital Sign Value Performing Clinician Facility 12-09-2023 11:54-0400 Body height 170.2 cm Aline Ferrari MD Work Phone: [facility] 12-09-2023 11:54-0400 Body mass index (BMI) [Ratio] 20.2 kg/m2 Aline Ferrari MD Work Phone: [facility] 12-09-2023 11:54-0400 Body weight 58.51 kg Aline Ferrari MD Work Phone: [facility] 12-09-2023 11:54-0400 Diastolic blood pressure 66 mm[Hg] Aline Ferrari MD Work Phone: [facility] 12-09-2023 11:54-0400 Heart rate 61 /min Aline Ferrari MD Work Phone: [facility] 12-09-2023 11:54-0400 Systolic blood pressure 122 mm[Hg] Aline Ferrari MD Work Phone: [facility] 03-24-2023 14:09-0500 Body height 170.2 cm Aline Villalba MD Work Phone: [facility] 03-24-2023 14:09-0500 Body mass index (BMI) [Ratio] 20.83 kg/m2 Aline Villalba MD Work Phone: [facility] 03-24-2023 14:09-0500 Body temperature 97.81 [degF] Aline Villalba MD Work Phone: [facility] 03-24-2023 14:09-0500 Body weight 60.33 kg Aline Villalba MD Work Phone: [facility] 03-24-2023 14:09-0500 Diastolic blood pressure 72 mm[Hg] Aline Villalba MD Work Phone: [facility] 03-24-2023 14:09-0500 Heart rate 66 /min Aline Villalba MD Work Phone: [facility] 03-24-2023 14:09-0500 Respiratory rate 20 /min Aline Villalba MD Work Phone: [facility] 03-24-2023 14:09-0500 SaO2% (BldA) [Mass fraction] 98 % Aline Villalba MD Work Phone: [facility] 03-24-2023 14:09-0500 Systolic blood pressure 118 mm[Hg] Aline Villalba MD Work Phone: [facility] 03-18-2023 11:51-0500 Body height 170.2 cm Aline Ferrari MD Work Phone: [facility] 03-18-2023 11:51-0500 Body mass index (BMI) [Ratio] 20.67 kg/m2 Aline Ferrari MD Work Phone: [facility] 03-18-2023 11:51-0500 Body weight 59.88 kg Aline Ferrari MD Work Phone: [facility] 03-18-2023 11:51-0500 Diastolic blood pressure 80 mm[Hg] Aline Ferrari MD Work Phone: [facility] 03-18-2023 11:51-0500 Heart rate 59 /min Aline Ferrari MD Work Phone: [facility] 03-18-2023 11:51-0500 Systolic blood pressure 110 mm[Hg] Aline Ferrari MD Work Phone: [facility] Encounters Encounter Date Encounter Type Care Provider Facility Start: 03-07-2024 End: 03-07-2024 ambulatory [facility] Start: 03-07-2024 End: 03-07-2024 ambulatory [facility] Start: 03-07-2024 Encounter for genera l adult medical examination without abnormal findings [facility] Start: 03-06-2024 End: 03-06-2024 ambulatory [facility] Start: 01-24-2024 End: 01-26-2024 Refill [facility] CATALOGUE LIBRARIAN-ADHESIVE SPRAYER Work Phone: [facility] Comment on above: Med Refill Start: 12-09-2023 End: 12-09-2023 Office outpatient visit 15 minutes Aline Ferrari MD Work Phone: [facility] Comment on above: Paroxysmal atrial fi brillation (CMS-HCC) (Primary Dx); Nonrheumatic mitral (valve) insufficiency; 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 using a #30 mm Lan-Soto annuloplasty ring Jun 07, 2018 ([facility] 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 May 2018 at [facility]; History of surgical Maze procedure May 2018 [facility] Start: 12-09-2023 End: 12-09-[facility] Start: 12-08-2023 End: 12-08-2023 Telephone encounter Melani Lo [facility] Start: 12-06-2023 End: 12-06-2023 ambulatory Pime Int Med Nurse 1 [facility]/Aline Villalba MD Comment on above: Encounter for immuni zation (Primary Dx) Start: 07-13-2023 End: 07-13-2023 ambulatory [facility] Start: 06-01-2023 End: 06-01-2023 ambulatory [facility] Start: 06-01-2023 Telephone encounter Aline Villalba MD Work Phone: [facility]/Aline Villalba MD Start: 05-10-2023 Refill [facility]/Aline Villalba MD Start: 03-24-2023 End: 03-24-2023 Office outpatient visit 15 minutes Aline Villalba MD Work Phone: [facility]/Aline Villalba MD Comment on above: Chronic left shoulde r pain (Primary Dx) Start: 03-24-2023 End: 03-25-2023 ambulatory [facility] Start: 03-19-2023 Telephone encounter Aline Villalba MD Work Phone: [facility]/Aline Villalba MD Start: 03-18-2023 End: 03-18-2023 Office outpatient visit 15 minutes Aline Ferrari MD Work Phone: [facility] Comment on above: Status post mitral v alve repair - complex mitral valve repair using a #30 mm Lan-Soto annuloplasty ring Jun 07, 2018 (Dr Marysol Martinez at [facility]) (Primary Dx); 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 Start: 03-17-2023 Telephone encounter Melani archer [facility] Start: 03-05-2023 Refill Noni Odonnell RN [facility] Comment on above: Med Refill Start: 02-10-2022 End: 02-11-[address] RAMIREZ [facility] Facility:H1 Start: 10-07-2020 End: 10-08-2020 ambulatory GRIS BORRERO [facility] Start: 10-07-2020 End: 10-07-2020 Subsequent hospital visit by physician Aline Villalba MD Work Phone: [facility] Comment on above: Ischemic stroke of f rontal lobe (HCC) Start: 12-22-2018 End: 12-22-2018 Subsequent hospital visit by physician Aline Villalba MD Work Phone: [facility] Start: 12-06-2018 End: 12-06-2018 Subsequent hospital visit by physician Yadira Seals [facility] Start: 11-15-2018 End: 11-15-2018 Subsequent hospital visit by physician Yadira Seals [facility] Start: 10-27-2018 End: 10-27-2018 Subsequent hospital visit by physician Yadira Seals [facility] Start: 10-17-2018 End: 10-17-2018 Subsequent hospital visit by physician Yadira Seals [facility] Start: 10-02-2018 End: 10-03-2018 Emergency department patient visit YADIRA Mclaughlin [facility] Start: 07-03-2018 End: 07-04-2018 Patient encounter procedure EDUIN Boswell [facility] Start: 06-24-2018 End: 06-25-2018 Patient encounter procedure BASSEM TATE Facility:[facility] Procedures Date Procedure Procedure Detail Performing Clinician Start: 12-09-2023 Follow-up visit Follow-up ALINE FERRARI Start: 07-13-2023 Follow-up visit Follow-up ALINE SUAREZ RRA Start: 07-13-2023 Adult depression scr eening assessment Pime 1 Start: 03-24-2023 Adult depression scr eening assessment Aline Villalba MD Work Phone: Start: 12-15-2022 Adult depression scr eening assessment Noni Odonnell RN Start: 10-07-2020 Lipid panel Gris zamora MD Work Phone: Start: 12-22-2018 Urinalysis microscop ic only Aline Villalba MD Work Phone: Start: 12-22-2018 Urnls dip stick/tabl et rgnt auto w/o microscopy Aline Villalba MD Work Phone: Start: 12-06-2018 Prothrombin time Sharle en A Suico Work Phone: Start: 12-06-2018 Transferase alanine amino alt sgpt Aline Villalba Work Phone: Start: 12-06-2018 Transferase aspartat e amino ast sgot Aline Villalba Work Phone: Start: 11-15-2018 Prothrombin time Sharle en A Suico Work Phone: Start: 10-27-2018 Prothrombin time Sharle en A Suico Work Phone: Start: 10-17-2018 Prothrombin time Sal Duarte Work Phone: Start: 10-03-2018 Ct cervical spine w/ o contrast material EDUIN MARTINEZ Start: 10-03-2018 Ct head/brain w/o co ntrast material EDUIN MARTINEZ Start: 10-02-2018 Prothrombin time EDUIN MARTINEZ Start: 07-03-2018 Prothrombin time EDUIN MARTINEZ Plan of Treatment Date Care Activity Detail Author Start: 10-02-2028 DTaP,Tdap and Td Vac cines (2 - Td or Tdap) DTaP,Tdap and Td Vaccines (2 - Td or Tdap) [facility] Start: 10-02-2028 DTaP/Tdap/Td vaccine (2 - Td or Tdap) DTaP/Tdap/Td vaccine (2 - Td or Tdap) [facility] Work Phone: Start: 10-02-2028 DTaP/Tdap/Td vaccine (2 - Td) DTaP/Tdap/Td vaccine (2 - Td) [facility] [place] Start: 12-08-2024 Adult BMI Screening Adult BMI Screen ing [facility] Start: 07-12-2024 Adult BMI Screening Adult BMI Screen ing [facility] Start: 07-12-2024 Depression Screening Depression Scre ening [facility] Start: 07-12-2024 Fall Risk Screening Fall Risk Screen ing [facility] Start: 07-12-2024 Tobacco Screening Tobacco Screening [facility] Start: 03-24-2024 Adult BMI Screening Adult BMI Screen ing [facility] Start: 03-24-2024 Depression Screening Depression Scre ening [facility] Start: 03-24-2024 Fall Risk Screening Fall Risk Screen ing [facility] Start: 03-24-2024 Tobacco Screening Tobacco Screening [facility] Start: 03-18-2024 Adult BMI Screening Adult BMI Screen ing [facility] Start: 03-18-2024 Tobacco Screening Tobacco Screening [facility] Start: 02-04-2024 End: 02-04-2024 Patient encounter procedure 02/04/2024 9:00 AM EST Office Visit [facility]Aline Villalba MD [address] [phone] Aline Villalba MD [address] [address] [facility]/Aline Villalba MD Start: 02-02-2024 Adult BMI Screening Adult BMI Screen ing [facility] Start: 02-02-2024 Tobacco Screening Tobacco Screening [facility] Start: 12-16-2023 Depression Screening Depression Scre ening [facility] Start: 12-16-2023 Fall Risk Screening Fall Risk Screen ing [facility] Start: 12-16-2023 Medicare Annual Well ness Visit Medicare Annual Wellness Visit [facility] Start: 12-09-2023 End: 12-09-2023 Patient encounter procedure 12/09/2023 12:00 PM EDT Office Visit [facility] [address] [facility] [address] [place] [address] Aline Ferrari MD [address] [facility] [place], [place] [id number] [facility] Start: 10-31-2023 COVID-19 Vaccine ( season) COVID-19 Vaccine () [facility] Start: 10-31-2023 COVID-19 Vaccine ( season) COVID-19 Vaccine () [facility] Start: 10-31-2023 Influenza vaccination Influenza Vacc ine [facility] Start: 07-13-2023 End: 07-13-2023 Patient encounter procedure 07/13/2023 10:15 AM EDT Office Visit [facility]Aline Villalba MD [address] [phone] Aline Villalba MD [address] [address] [facility]/Aline Villalba MD Start: 06-25-2023 End: 06-25-2023 Patient encounter procedure 06/25/2023 8:45 AM EDT Office Visit [facility]/Aline Villalba MD [address] [phone] Aline Villalba MD [address] [address] [facility]/Aline Villalba MD Start: 06-16-2023 End: 06-16-2023 Patient encounter procedure 06/16/2023 10:30 AM EDT Office Visit [facility]/Aline Villalba MD [address] [phone] Aline Villalba MD [address] [address] [facility]/Aline Villalba MD Start: 06-01-2023 COVID-19 Vaccine () COVID-19 Vaccine () [facility] Start: 03-18-2023 End: 03-18-2023 Patient encounter procedure 03/18/2023 12:00 PM EST Office Visit [facility] [address] [facility] [address] [place] [address] Aline Ferrari MD [address] [facility] [place] [address] [facility] Start: 11-18-2022 COVID-19 Vaccine ( season) COVID-19 Vaccine ( season) [facility] Start: 10-30-2020 Influenza vaccination Flu vaccine (# 1) [facility] Work Phone: Start: 03-13-2019 End: 03-13-2019 Patient encounter procedure 03/13/2019 Office Visit Neurology Gris Borrero MD [address] [facility] [address] [place] [address] [phone] [facility] Neurology Specialist Start: 12-08-2018 End: 12-08-2018 Office Visit 12/08/2018 Office Visit Neurology Gris Borrero MD [address] [facility] [address] [place], [place] [phone] [facility] Neurology Specialist Start: 12-05-2018 End: 12-05-2018 Office Visit 12/05/2018 Office Visit Neurology Gris Borrero MD [address] [phone] [facility] Neurology Specialist Start: 10-30-2018 Influenza vaccination Flu vaccine (# 1) [place] Start: 08-21-2018 Annual Wellness Visi t (AWV) Annual Wellness Visit (AWV) [place] Start: 08-02-2016 Lipid panel Lipid screen [facility] Work Phone: Start: 08-02-2016 Lipid screen Lipid screen [place], [place] Start: 05-08-2015 Shingles Vaccine (2 of 3) Mcdonnell gles Vaccine (2 of 3) [place] Start: 2013 DEXA (modify frequen cy per FRAX score) DEXA (modify frequency per FRAX score) [place] Start: 2013 Pneumococcal 65+ yea rs Vaccine (1 of 1 - PPSV23) Pneumococcal 65+ years Vaccine (1 of 1 - PPSV23) [place] Start: 2013 Pneumococcal 65+ yea rs Vaccine (1 of 2 - PCV13) Pneumococcal 65+ years Vaccine (1 of 2 - PCV13) [place] Start: 08-02-2012 Creatinine monitoring [facility] [place] Start: 08-02-2012 Potassium monitoring [facility] [place] Start: 08-13-2011 Annual Wellness Visi t (AWV) Annual Wellness Visit (AWV) [place] Start: 08-13-2003 Screening for osteoporosis DEX A (modify frequency per FRAX score) [facility] [email or web address] Phone: Start: 1998 [facility] cancer [facility] [place] Start: 1998 Colon cancer screen colonoscopy Colon cancer screen colonoscopy [place] Start: 1998 Screening for malign ant neoplasm of breast Breast cancer screen [facility] Phone: Start: 1998 Shingles Vaccine (1 of 2) Mcdonnell gles Vaccine (1 of 2) [place] Start: 1993 Screening for malign ant neoplasm of colon Colon cancer screen colonoscopy [facility] [email or web address] Phone: Start: 1960 COVID-19 Vaccine (1) COVID-19 Vaccin e (1) [facility] [email or web address] Phone: Start: 1948 Hepatitis C screen Hepatitis C scree n [place], [place] Start: 1948 Hepatitis C screening Hepatitis C sc reen [facility] [email or web address] Phone: Start: 1950 TSH testing TSH testing [place] End: 03-24-2024 Alanine aminotransferase [Enzymatic activity/volume] in Serum or Plasma ALT Lab Routine Chronic left shoulder pain 1 Occurrences starting 03/24/2023 until 03/24/2024 [facility] Comment on above: 1 Occurrences starti ng 03/24/2023 until 03/24/2024 End: 03-24-2024 Aspartate aminotransferase [Enzymatic activity/volume] in Serum or Plasma AST Lab Routine Chronic left shoulder pain 1 Occurrences starting 03/24/2023 until 03/24/2024 [facility] Work Phone: Comment on above: 1 Occurrences starti ng 03/24/2023 until 03/24/2024 End: 12-22-2018 Urine culture clean catch Urine culture clean catch Microbiology Routine Once for 1 Occurrences starting 12/22/2018 until 12/22/2018 [place] Comment on above: Once for 1 Occurrenc es starting 12/22/2018 until 12/22/2018 Urine culture clean catch Urine culture clean catch Microbiology Routine 12/22/2018 10:21 PM EDT [place] Immunizations Immunization Date Immunization Notes Care Provider Fa cili 12-06-2023 Seasonal trivalent influenza vaccine, adjuvanted, preservative free Pime 1 [facility] 12-03-2023 Immunization, In Clinic,; Translations: [Drug or medicament (substance)] Pime 1 [facility] 12-03-2022 Influenza Vaccine, Quadrivalent, Adjuvanted Noni Odonnell RN [facility] 12-03-2022 influenza virus vaccine, unspecified formulation Aline Villalba MD Work Phone: [facility] 11-26-2021 Influenza Vaccine, Quadrivalent, Adjuvanted Noni Odonnell RN [facility] 12-04-2020 Influenza, High-dose , Quadrivalent Noni Odonnell RN [facility] 11-30-2019 influenza, high dose seasonal, preservative-free Noni Odonnell RN [facility] 02-28-2019 zoster vaccine recombinant Noni Odonnell RN [facility] 12-16-2018 zoster vaccine recombinant Noni Odonnell RN [facility] 12-02-2018 influenza, high dose seasonal, preservative-free Noni Steep RN [facility] 10-02-2018 tetanus toxoid, redu debbie diphtheria toxoid, and acellular pertussis vaccine, adsorbed [place], [place] 12-23-2017 influenza virus vaccine, unspecified formulation Noni Odonnell RN [facility] 12-15-2017 influenza, high dose seasonal, preservative-free Noni Odonnell RN [facility] 12-15-2017 Seasonal trivalent influenza vaccine, adjuvanted, preservative free Noni Odonnell RN [facility] 12-21-2016 Seasonal trivalent influenza vaccine, adjuvanted, preservative free Noni Odonnell RN [facility] 01-01-2016 influenza, high dose seasonal, preservative-free Noni Odonnell RN [facility] 03-13-2015 zoster vaccine, live Noni Odonnell RN [facility] Payers Date Payer Category Payer Managed Care Other (unspecified) [facility] [id number] 2016 Private Health Insurance [facility] AAR SUPPLEMENT [id number] 2016-Present [phone] [address] [place] [address] [id number] 2015 Self-pay [id number] 2014 Medicare xxxxxxxxxxx [id number] 2013 Medicare [id number] 1959 Medicare [id number] 1959 Private Health Insurance [id number] 1948 Unknown [id number] .647 1948 Unknown [id number] [id number] .176 1948 Unknown [id number] [id number] .176 1948 Unknown [id number] [id number] .175 1948 Unknown [id number] [id number] .593 1948 Unknown [id number] [id number] .1286 1948 Unknown [id number] 2.16.840.1.811024.3.579.2 .1286 1948 Unknown [id number] [id number] .1286 1948 Unknown [id number] [id number] .1286 1948 Unknown [id number] [id number] .1286 1948 Unknown [id number] [id number] .1286 1948 Unknown [id number] [id number] .1286 1948 Unknown [id number] [id number] .1286 1948 Unknown [id number] [id number] .1286 1948 Unknown [id number] .1286 Social History Date Type Detail Facility Start: 10-02-2018 End: 02-06-2022 Tobacco smoking status NHIS Never smoker [place] Start: 10-02-2018 End: 03-15-2020 Alcohol intake Never [place] Start: 08-03-2018 History SDOH Alcohol Frequency 1 [place] Start: 1950 Sex Assigned At Not on file [place] Start: 09-23-2020 End: 02-06-2022 Tobacco use and exposure Never used [facility] Start: 09-23-2020 Alcohol intake Lifetime non-d danielle (finding) [facility] [employer] Work Phone: Start: 02-01-2023 End: 12-09-2023 Alcohol intake Current non-drinker of alcohol (finding) [facility] Start: 03-15-2020 End: 02-01-2023 History of Social function [facility] How hard is it for y ou to pay for the very basics like food, housing, medical care, and heating Not hard at all [facility] Start: 10-02-2014 Sex Female (finding) [facility] Clinical Notes 06-07-2018 to 01-24-2024 Telephone Encounter - Geo Valdivia RN - 01/24/2024 9:34 AM ESTTelephone Encounter - Geo Valdivia RN - 01/24/2024 9:34 AM Osito Ferrari MD - 12/09/2023 12:00 PM EDT Note Date & Type Note Facility 01-24-2024 Miscellaneous Notes Formattin g of this note might be different from the original. OV: 12/09/2023 CMP: BMP on 10/13/2022 and LFT on 06/01/2023; ordered 09/28/2023 CBC: 10/13/2022 ordered 09/28/2023 Patient still needs to get labs. Will send a reminder. [facility] this [facility] 01-24-2024 Telephone encount er Note OV: 12/09/2023 CMP: BMP on 10/13/2022 and LFT on 06/01/2023; ordered 09/28/2023 CBC: 10/13/2022 ordered 09/28/2023 Patient still needs to get labs. Will send a reminder. [facility] 12-09-2023 History of Presen t illness Narrative Danilo Jensen Corey Date of visit: 12/09/2023 Date of : 1950 Age: 73 y.o. Patient Active Problem List Diagnosis Essential hypertension Gastroesophageal reflux disease Lupus erythematosus PVC's (premature ventricular contractions) Neurocardiogenic syncope Apr 2018 and another one 5 years earlier 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 using a #30 mm Lan-Soto annuloplasty ring Jun 07, 2018 (Dr Marysol Martinez at [facility]) 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 May 2018 [facility] History of surgical Maze procedure May 2018 at [facility] Normal coronary arteries - on cardiac cath Apr 2018 Need for SBE (subacute bacterial endocarditis) prophylaxis Raynaud's phenomenon without gangrene - sees Dr Lissette Suárez (Rheum) Immunocompromised ([facility]) Non-rheumatic tricuspid valve insufficiency Nonrheumatic mitral (valve) insufficiency Atypical atrial flutter ([facility]) History of CVA (cerebrovascular accident) Paroxysmal atrial fibrillation ([facility]) Seizure disorder ([facility]) Allergies Allergen Reactions Penicillins Other reaction(s): Intolerance-unknown Sulfa (Sulfonamide Antibiotics) Other reaction(s): Intolerance-unknown Current Outpatient Medications Medication Sig Dispense Refill apixaban (ELIQUIS) 5 mg tablet Take 1 tablet (5 mg total) by mouth in the morning and 1 tablet (5 mg total) before bedtime. 180 tablet 1 iclwmxgtwn-ifaoxpdpgsmnp-dlbb (FIORICET, ESGIC) 50-325-40 mg per tablet TAKE 1 TABLET BY MOUTH ONCE DAILY NEEDED FOR HEADACHE(S) ; DO NOT EXCEED 4 TABLETS A WEEK 48 tablet 1 calcium carbonate-vitamin D3 600 mg(1,500mg) -200 units per tablet Take 1 tablet by mouth in the evening. cholecalciferol, vitamin D3, (VITAMIN D3) 5,000 units capsule Take 2,000 Units by mouth daily. clindamycin (CLEOCIN) 150 mg capsule Take 1 capsule (150 mg total) by mouth 3 (three) times a day. docusate sodium (COLACE) 100 mg capsule Take 1 capsule (100 mg total) by mouth in the morning and 1 capsule (100 mg total) before bedtime. fluticasone (CUTIVATE) 0.005 % ointment Place on the skin as needed. hydroxychloroquine (PLAQUENIL) 200 mg tablet Take 1 tablet (200 mg total) by mouth in the morning. ipratropium (ATROVENT) 42 mcg (0.06 %) nasal spray Administer 2 sprays into each nostril in the morning and at bedtime. 15 mL 2 metoprolol succinate XL (TOPROL XL) 25 mg 24 hr tablet TAKE 1 TABLET BY MOUTH IN THE MORNING 90 tablet 1 omega-3 fatty acids-fish oil 300-1,000 mg capsule Take 2 capsules (2 g total) by mouth in the morning. omeprazole (PriLOSEC) 20 mg capsule Take 1 capsule (20 mg total) by mouth in the morning and 1 capsule (20 mg total) before bedtime. 180 capsule 3 No current facility-administered medications for this visit. Chief Complaint Patient presents with Follow-up Atrial Flutter History of Present Illness States feeling good. Leads an active lifestyle. Denies any anginal chest pain or palpitation or lightheadedness or dizziness or shortness of breath or PND or orthopnea or leg swelling or bleeding or syncope. Taking all current cardiac medications regularly. Past Medical History: Diagnosis Date Allergic Arrhythmia Breast cancer ([facility]) Cancer ([facility]) GERD (gastroesophageal reflux disease) Heart murmur Hypertension Lupus Migraine headache Non-rheumatic tricuspid valve insufficiency Nonrheumatic mitral (valve) insufficiency Paroxysmal atrial fibrillation ([facility]) Seizures ([facility]) 06/07/2018 Shingles Stroke ([facility]) Syncope and collapse Varicella No data recorded No data recorded No data recorded Past Surgical History: Procedure Laterality Date BREAST BIOPSY BREAST SURGERY COLONOSCOPY 2006 COLPOSCOPY Coronary angiogram and right heart and left ventricular gram/pressure N/A 04/08/2018 Performed by Yaa Allred MD at [facility] C[facility] CATH LABS ESOPHAGOGASTRODUODENOSCOPY N/A 05/29/2021 Performed by Med Ross MD at [facility] ENDOSCOPY EYE SURGERY retinal tear in left eye Inject aortic root complete N/A 04/08/2018 Performed by Yaa Allred MD at [facility] C[facility] CATH LABS LYMPH NODE BIOPSY MASTECTOMY 03/02/2014 MITRAL VALVE REPAIR 05/2018 RENAL BIOPSY SKIN BIOPSY TONSILLECTOMY Family History Problem Relation Age of Onset Heart disease Mother afib Heart disease Father pacemaker Colon cancer Neg Hx Social History Socioeconomic History Marital status: Spouse name: Not on file Number of children: Not on file Years of education: Not on file Highest education level: Not on file Occupational History Not on file Tobacco Use Smoking status: Never Smokeless tobacco: Never Vaping Use Vaping status: Never Used Substance and Sexual Activity Alcohol use: No Drug use: No Sexual activity: Yes Partners: Male control/protection: Post-menopausal Other Topics Concern Caffeine Use No Social History Narrative Not on file Social Determinants of Health Financial Resource Strain: Low Risk (05/27/2020) Overall Financial Resource Strain (CARDIA) Difficulty of Paying Living Expenses: Not hard at all Food Insecurity: No Food Insecurity (12/09/2023) Hunger Screening Food Insecurity - Worry: Never True Food Insecurity - Inability: Never True Transportation Needs: No Transportation Needs (05/27/2020) PRAPARE - Transportation Lack of Transportation (Medical): No Lack of Transportation (Non-Medical): No Physical Activity: Not on file Stress: Not on file Social Connections: Not on file Interpersonal Safety: Not on file Housing Instability: Not on file Review of Systems Review of Systems Cardiovascular: Negative for chest pain, dyspnea on exertion and syncope. Respiratory: Negative for cough, shortness of breath and wheezing. Skin: Negative for itching and rash. Musculoskeletal: Positive for arthritis, joint pain and stiffness. Gastrointestinal: Negative for constipation and diarrhea. Neurological: Negative for dizziness, headaches and loss of balance. CARDIOVASCULAR: Please review HPI. Physical Examination General appearance: Awake, Alert, oriented X 3. Well developed, well nourished. Pleasant. Accompanied by Kraig. HEENT: Bilateral conjunctiva clear. Neck: No JVD, no carotid bruits. Chest: Clear bilaterally. No chest wall tenderness. No rhonchi or wheezing. CVS: Regular rate and rhythm, no S3 or S4 gallop, no significant audible murmur or rubs or clicks. Abdomen: Soft, non-tender. Extremities: No cyanosis or clubbing or leg edema. No calf tenderness. Pulses: Bilaterally symmetrical and intact radial pulses. Neuro: Able to move all 4 extremities. Grossly non focal with no new deficit. Psychiatric: Appropriate mood, memory and judgement. VITAL SIGNS: BP 122/66 Pulse 61 Ht 170.2 cm (5' 7 ) Wt 58.5 kg (129 lb) BMI 20.20 kg/m Orders Placed or Reconciled This Encounter Medications clindamycin (CLEOCIN) 150 mg capsule Sig: Take 1 capsule (150 mg total) by mouth 3 (three) times a day. There are no discontinued medications. Electrical: Cardioversion September 2022 Impression/plan: Successful external cardioversion. Will obtain 12 lead ECG document her rhythm in sinus. Discontinue verapamil however continue Eliquis and Toprol. Will have her follow-up in 6-8 weeks with EP nurse practitioner to see how she is doing if she has remained in sinus rhythm will pursue that however if she has recurrence we can consider left atrial ablation with antiarrhythmic or antiarrhythmic by self. 2D echocardiogram July 2022: Left Ventricle: Systolic function is low normal to mildly decreased with an ejection fraction of 50-55%. The quantitative EF by 2D Hamilton biplane is 46%. Aortic Valve: There is mild regurgitation. There is no evidence of aortic valve stenosis. Mitral Valve: The valve has been repaired with an annular ring. There is mild to moderate regurgitation. Tricuspid Valve: s/p Tricuspid valve repair. There is mild regurgitation. Holter monitor August 2022: 1. Persistent atrial fibrillation with average ventricular rate of 87 beats per minute. Heart rate 54-116 beats per minute. 2. No pauses. 3. PVCs. Rare. 4. No VT. 5. Patient reported events correlated with atrial fibrillation with heart rate 84-111 beats per minute. 2 D Echocardiogram Nov 2019: Left Ventricle: Systolic function is normal with an ejection fraction of 55-60%. Left Ventricle: There is moderate increased wall thickness/hypertrophy. Left Ventricle: Diastolic function assessment is indeterminate. Lateral E' is 4.97 cm/s. Medial E' is 5.95 cm/s. Aortic Valve: The aortic valve is trileaflet. The leaflets are mildly calcified. Aortic Valve: There is mild regurgitation. There is no evidence of aortic valve stenosis. Mitral Valve: The valve has been repaired with an #30 mm Lan-Soto annular ring. Mitral Valve: There is mild to moderate regurgitation. There is no evidence of mitral valve stenosis. Two regurgitant jets noted. Tricuspid Valve: Tricuspid valve has been repaired with #28 mm Tri-Ad, appears to be normal. Tricuspid Valve: There is trace regurgitation. There is no evidence of tricuspid valve stenosis. Pulmonic Valve: There is mild regurgitation. There is no evidence of pulmonic valve stenosis. Consider transesophageal echocardiogram for better evaluation of mitral valve regurgitation. Please correlate clinically. CT Angio of coronaries 2015: Impression: 1. No significant coronary artery calcification or stenosis seen. 2. Note is made of annular calcification within region of mitral valve. 3. Small amount of soft plaque seen within proximal first diagonal branch which does not cause significant stenosis. Cardiac cath Apr 2018: Normal coronaries, normal LVEF. IMPRESSIONS/PLAN: 1. Nonrheumatic mitral (valve) insufficiency 2. 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 using a #30 mm Lan-Soto annuloplasty ring Jun 07, 2018 (Dr Marysol Martinez at [facility]) 3. 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. Paroxysmal atrial fibrillation ([facility]) 5. History of surgical [facility] Mitral valve disease and tricuspid valve disease requiring a complex mitral valve repair using a #30 mm Lan-Soto annuloplasty ring, tricuspid valve repair using a #28 mm Tri-Ad annuloplasty ring, and MAZE procedure as with left atrial appendage ligation with Dr. Eduin Martinez on July 07, 2018 complicated by lethargy and inability to wean off the ventilator initially, dysphagia, left upper extremity weakness/left hand twitching and weakness, epistaxis, acute ischemia involving the MCA territory on Abnormal MRI of the brain May 10, 2018, residual left hand problems since open heart surgery and post CVA, normal coronaries, normal LVEF on cardiac cath Apr 2018, mild to moderate MR, mild TR, mild aortic regurgitation, LVEF 50-55% on 2D echocardiogram July 2022, rare PVCs, rare PACs, abnormal EKG, lupus erythematosus, Raynaud's phenomenon ( left hand hard to get get warmer ever, less with right hand and feet , sees Dr Kevin Suárez, Rheumatolgist), normal carotid doppler Nov 2018, other problems as charted. No active angina or fluid overload or bleeding or syncope. Retired Teacher. As patient remains stable overall cardiac-le, will continue on all current cardiac medications. Will plan to repeat elective 2D echocardiogram next year to reassess mitral valve disease and tricuspid valve disease or sooner if any symptoms occur as the last 2D echocardiogram was done in July 2022. Follow-up from general cardiology standpoint with me in 8 months or sooner as needed. Thank you. TODAYS ORDERS No orders of the defined types were placed in this encounter. FOLLOW UP Return in about 8 months (around 08/08/2024) for Recheck - with RKA only. PCP: Aline Villalba MD Referring Physician: Aline Villalba MD [id number] [facility] [address] [place] [id number] Aline Ferrari MD, [facility] documented in this encounter [facility] 12-09-2023 Instructions Aline Ferrari MD - 12/09/2023 12:00 PM EDT As patient remains stable overall cardiac-le, will continue on all current cardiac medications. Will plan to repeat elective 2D echocardiogram next year to reassess mitral valve disease and tricuspid valve disease or sooner if any symptoms occur as the last 2D echocardiogram was done in July 2022. Follow-up from general cardiology standpoint with me in 8 months or sooner as needed. documented in this encounter [facility] 12-08-2023 Miscellaneous Notes Formattin g of this note might be different from the original. Left message for patient to remind them to bring their most current medication list with them to their appointment. documented in this encounter [facility] 12-08-2023 Telephone encount er Note Left message for patient to remind them to bring their most current medication list with them to their appointment. [facility] 12-06-2023 History of Presen t illness Narrative Pt presents today for a nurse visit to receive flu vaccine. Received 0.5 mL in right delt, tolerated well. VIS sheet provided. documented in this encounter [facility] 06-01-2023 Miscellaneous Notes Formattin g of this note might be different from the original. Pt ? Uti, she is having frequent urination, only able to go a little. She is pushing fluids. Can you order culture? In EMR Spoke to patient, she is going to hold off for now, she is feeling better. documented in this encounter [facility] 06-01-2023 Telephone encount er Note Pt ? Uti, she is having frequent urination, only able to go a little. She is pushing fluids. Can you order culture? [facility] 06-01-2023 Telephone encount er Note In EMR [facility] 06-01-2023 Telephone encount er Note Spoke to patient, she is going to hold off for now, she is feeling better. [facility] 05-10-2023 Miscellaneous Notes Formattin g of this note might be different from the original. Patient no longer taking Protonix. Started prilosec 20 mg BID Needs 90 day supply [facility] documented in this encounter [facility] 05-10-2023 Telephone encount er Note Patient no longer taking Protonix. Started prilosec 20 mg BID Needs 90 day supply [facility] 05-10-2023 Miscellaneous Notes Formattin g of this note might be different from the original. Patient called for Claribel Wheeler - please return patient's call. Spoke with patient. Refill sent to Dr Villalba. documented in this encounter [facility] 05-10-2023 Telephone encount er Note Patient called for Claribel Wheeler - please return patient's call. [facility] 05-10-2023 Telephone encount er Note Spoke with patient. Refill sent to Dr Villalba. [facility] 03-24-2023 History of Presen t illness Narrative Subjective Patient ID: Danilo Walker is a 72 y.o. female. Chief Complaint Chief Complaint Patient presents with Follow-up Pt c/o upper L side back pain/sore throat x one month HPI HPI worsening left shoulder pain recently. No injuries or trauma. Has had some mobility issues since her CVA 6 years ago. Was not taking tylenol for some time due to elev. AST and ALT. NSAIDS not ideal due to eliquis use. Recovering from sore throat. Family brought in from [place] few weeks ago. Past Medical History Past Medical History: Diagnosis Date Allergic Arrhythmia Breast cancer (CMS-HCC) Cancer (CMS-HCC) GERD (gastroesophageal reflux disease) Heart murmur Hypertension Lupus (CMS-HCC) Migraine headache Non-rheumatic tricuspid valve insufficiency Nonrheumatic mitral (valve) insufficiency Paroxysmal atrial fibrillation (CMS-HCC) Seizures ([facility]) 06/07/2018 Shingles Stroke ([facility]) Syncope and collapse Varicella Past Surgical History Past Surgical History: Procedure Laterality Date BREAST BIOPSY BREAST SURGERY COLONOSCOPY 2007 COLPOSCOPY Coronary angiogram and right heart and left ventricular gram/pressure N/A 04/08/2018 Performed by Yaa Allred MD at [facility] CARDIAC CATH LABS ESOPHAGOGASTRODUODENOSCOPY N/A 05/29/2021 Performed by Med Ross MD at [facility] ENDOSCOPY EYE SURGERY retinal tear in left eye Inject aortic root complete N/A 04/08/2018 Performed by Yaa Allred MD at [facility] CARDIAC CATH LABS LYMPH NODE BIOPSY MASTECTOMY 03/02/2014 MITRAL VALVE REPAIR 05/2018 RENAL BIOPSY SKIN BIOPSY TONSILLECTOMY Family History Family History Problem Relation Age of Onset Heart disease Mother afib Heart disease Father pacemaker Colon cancer Neg Hx Social History Social History Socioeconomic History Marital status: Spouse name: Not on file Number of children: Not on file Years of education: Not on file Highest education level: Not on file Occupational History Not on file Tobacco Use Smoking status: Never Smokeless tobacco: Never Vaping Use Vaping Use: Never used Substance and Sexual Activity Alcohol use: No Drug use: No Sexual activity: Yes Partners: Male control/protection: Post-menopausal Other Topics Concern Caffeine Use No Social History Narrative Not on file Social Determinants of Health Financial Resource Strain: Low Risk (05/27/2020) Overall Financial Resource Strain (CARDIA) Difficulty of Paying Living Expenses: Not hard at all Food Insecurity: No Food Insecurity (03/24/2023) Hunger Screening Food Insecurity - Worry: Never True Food Insecurity - Inability: Never True Transportation Needs: No Transportation Needs (05/27/2020) PRAPARE - Transportation Lack of Transportation (Medical): No Lack of Transportation (Non-Medical): No Physical Activity: Not on file Stress: Not on file Social Connections: Not on file Interpersonal Safety: Not on file Housing Instability: Not on file Allergies Allergies Allergen Reactions Penicillins Other reaction(s): Intolerance-unknown Sulfa (Sulfonamide Antibiotics) Other reaction(s): Intolerance-unknown Current Medications Current Outpatient Medications Medication Sig Dispense Refill apixaban (ELIQUIS) 5 mg tablet Take 1 tablet (5 mg total) by mouth in the morning and 1 tablet (5 mg total) before bedtime. 180 tablet 2 aqhavjyxzj-cqqckappzwmdw-kltr (FIORICET, ESGIC) 50-325-40 mg per tablet TAKE 1 TABLET BY MOUTH ONCE DAILY NEEDED FOR HEADACHE(S) ; DO NOT EXCEED 4 TABLETS A WEEK 48 tablet 1 calcium carbonate-vitamin D3 600 mg(1,500mg) -200 units per tablet Take 1 tablet by mouth in the evening. cholecalciferol, vitamin D3, (VITAMIN D3) 5,000 units capsule Take 2,000 Units by mouth daily. docusate sodium (COLACE) 100 mg capsule Take 1 capsule (100 mg total) by mouth in the morning and 1 capsule (100 mg total) before bedtime. fluticasone (CUTIVATE) 0.005 % ointment Place on the skin as needed. hydroxychloroquine (PLAQUENIL) 200 mg tablet Take 1 tablet (200 mg total) by mouth in the morning. ipratropium (ATROVENT) 42 mcg (0.06 %) nasal spray Administer 2 sprays into each nostril in the morning and at bedtime. 15 mL 2 metoprolol succinate XL (TOPROL XL) 25 mg 24 hr tablet Take 1 tablet (25 mg total) by mouth in the morning. 90 tablet 2 omega-3 fatty acids-fish oil 300-1,000 mg capsule Take 2 capsules (2 g total) by mouth in the morning. pantoprazole (PROTONIX) 40 mg EC tablet TAKE 1 TABLET BY MOUTH IN THE MORNING AND 1 TABLET BY MOUTH IN THE EVENING BEFORE MEALS 180 tablet 3 No current facility-administered medications for this visit. Review of Systems Review of Systems Constitutional: Negative for activity change, appetite change, fatigue and unexpected weight change. HENT: Positive for sore throat. Negative for trouble swallowing and voice change. Eyes: Negative for visual disturbance. Respiratory: Negative for cough, chest tightness, shortness of breath and wheezing. Cardiovascular: Negative for chest pain, palpitations and leg swelling. Gastrointestinal: Negative for abdominal pain, constipation, diarrhea, nausea and vomiting. Genitourinary: Negative for difficulty urinating, flank pain and urgency. Musculoskeletal: Positive for arthralgias. Negative for gait problem and myalgias. Neurological: Negative for dizziness, syncope, weakness, numbness and headaches. Psychiatric/Behavioral: Negative for dysphoric mood and sleep disturbance. The patient is not nervous/anxious. Objective Vitals BP 118/72 (BP Site: Left Arm, BP Postition: Sitting, BP CUFF SIZE: L (13-17 inches)) Pulse 66 Temp 36.6 C (97.8 F) (Temporal) Resp 20 Ht 170.2 cm (5' 7 ) Wt 60.3 kg (133 lb) SpO2 98% BMI 20.83 kg/m Physical Exam Physical Exam Vitals and nursing note reviewed. Constitutional: Appearance: Normal appearance. HENT: Mouth/Throat: Mouth: Mucous membranes are moist. Pharynx: Oropharynx is clear. Comments: Min. injection Musculoskeletal: Left shoulder: Tenderness present. No bony tenderness. Decreased range of motion (Passive abduction limited to 100 degrees). Neurological: Mental Status: She is alert. Assessment/Plan 1. Chronic left shoulder pain - X-ray shoulder left minimum 2 views; Future - AST; Future - ALT; Future PT slip also given. May try low dose tylenol. Follow AST/ALT in 1 month There are no discontinued medications. documented in this encounter [facility] 03-19-2023 Miscellaneous Notes Formattin g of this note might be different from the original. Patient called, had Mammogram last week at [facility]. I called for report to be faxed here.. Call patient with results. Results received documented in this encounter [facility] 03-19-2023 Telephone encount er Note Patient called, had Mammogram last week at [facility]. I called for report to be faxed here.. Call patient with results. [facility] 03-19-2023 Telephone encount er Note Results received [facility] 03-18-2023 History of Presen t illness Narrative Danilo Walker Date of visit: 03/18/2023 Date of : 1950 Age: 72 y.o. Patient Active Problem List Diagnosis Essential hypertension Gastroesophageal reflux disease Lupus erythematosus Malignant neoplasm of upper-inner quadrant of female breast ([facility]) PVC's (premature ventricular contractions) Malignant neoplasm of left female breast ([facility]) Neurocardiogenic syncope Apr 2018 and another one 5 years earlier 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 using a #30 mm Lan-Soto annuloplasty ring Jun 07, 2018 ([facility]) 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 May [facility] of [facility] Normal coronary arteries - on cardiac cath Apr 2018 Need for SBE (subacute bacterial endocarditis) prophylaxis Raynaud's phenomenon without gangrene - sees Dr Lissette Suárez (Rheum) Immunocompromised ([facility]) Non-rheumatic tricuspid valve insufficiency Nonrheumatic mitral (valve) insufficiency Atypical atrial flutter ([facility]) History of CVA (cerebrovascular accident) Paroxysmal atrial fibrillation ([facility]) Allergies Allergen Reactions Penicillins Other reaction(s): Intolerance-unknown Sulfa (Sulfonamide Antibiotics) Other reaction(s): Intolerance-unknown Current Outpatient Medications Medication Sig Dispense Refill apixaban (ELIQUIS) 5 mg tablet Take 1 tablet (5 mg total) by mouth in the morning and 1 tablet (5 mg total) before bedtime. 180 tablet 2 ymoqejgxjl-hinkgkutadpvi-htfa (FIORICET, ESGIC) 50-325-40 mg per tablet TAKE 1 TABLET BY MOUTH ONCE DAILY NEEDED FOR HEADACHE(S) ; DO NOT EXCEED 4 TABLETS A WEEK 48 tablet 1 calcium carbonate-vitamin D3 600 mg(1,500mg) -200 units per tablet Take 1 tablet by mouth in the evening. cholecalciferol, vitamin D3, (VITAMIN D3) 5,000 units capsule Take 2,000 Units by mouth daily. docusate sodium (COLACE) 100 mg capsule Take 1 capsule (100 mg total) by mouth in the morning and 1 capsule (100 mg total) before bedtime. fluticasone (CUTIVATE) 0.005 % ointment Place on the skin as needed. hydroxychloroquine (PLAQUENIL) 200 mg tablet Take 1 tablet (200 mg total) by mouth in the morning. ipratropium (ATROVENT) 42 mcg (0.06 %) nasal spray Administer 2 sprays into each nostril in the morning and at bedtime. 15 mL 2 metoprolol succinate XL (TOPROL XL) 25 mg 24 hr tablet Take 1 tablet (25 mg total) by mouth in the morning. 90 tablet 2 omega-3 fatty acids-fish oil 300-1,000 mg capsule Take 2 capsules (2 g total) by mouth in the morning. pantoprazole (PROTONIX) 40 mg EC tablet TAKE 1 TABLET BY MOUTH IN THE MORNING AND 1 TABLET BY MOUTH IN THE EVENING BEFORE MEALS 180 tablet 3 No current facility-administered medications for this visit. Chief Complaint Patient presents with Follow-up 6 months History of Present Illness Last saw her in April 2020 upon review of EHR data. Patient was most recently seen by Dr. Alber Castro on 02/01/2023 and I reviewed that note in the EHR. Just recovering from 3 weeks of sore throat and dry cough. Denies any anginal chest pain or palpitation or lightheadedness or dizziness or shortness of breath or leg swelling or bleeding or syncope. Taking all current cardiac medications regularly. Past Medical History: Diagnosis Date Allergic Arrhythmia Breast cancer ([facility]) Cancer ([facility]) GERD (gastroesophageal reflux disease) Heart murmur Hypertension Lupus ([facility]) Migraine headache Non-rheumatic tricuspid valve insufficiency Nonrheumatic mitral (valve) insufficiency Paroxysmal atrial fibrillation ([facility]) Seizures ([facility]) 06/07/2018 Shingles Stroke ([facility]) Syncope and collapse Varicella No data recorded No data recorded No data recorded Past Surgical History: Procedure Laterality Date BREAST BIOPSY BREAST SURGERY COLONOSCOPY 2006 COLPOSCOPY Coronary angiogram and right heart and left ventricular gram/pressure N/A 04/08/2018 Performed by Yaa Allred MD at [facility] CARDIAC CATH LABS ESOPHAGOGASTRODUODENOSCOPY N/A 05/29/2021 Performed by Med Ross MD at [facility] ENDOSCOPY EYE SURGERY retinal tear in left eye Inject aortic root complete N/A 04/08/2018 Performed by Yaa Allred MD at [facility] CARDIAC CATH LABS LYMPH NODE BIOPSY MASTECTOMY 03/02/2014 MITRAL VALVE REPAIR 05/2018 RENAL BIOPSY SKIN BIOPSY TONSILLECTOMY Family History Problem Relation Age of Onset Heart disease Mother afib Heart disease Father pacemaker Colon cancer Neg Hx Social History Socioeconomic History Marital status: Spouse name: Not on file Number of children: Not on file Years of education: Not on file Highest education level: Not on file Occupational History Not on file Tobacco Use Smoking status: Never Smokeless tobacco: Never Vaping Use Vaping Use: Never used Substance and Sexual Activity Alcohol use: No Drug use: No Sexual activity: Yes Partners: Male control/protection: Post-menopausal Other Topics Concern Caffeine Use No Social History Narrative Not on file Social Determinants of Health Financial Resource Strain: Low Risk (05/27/2020) Overall Financial Resource Strain (CARDIA) Difficulty of Paying Living Expenses: Not hard at all Food Insecurity: No Food Insecurity (12/15/2022) Hunger Screening Food Insecurity - Worry: Never True Food Insecurity - Inability: Never True Transportation Needs: No Transportation Needs (05/27/2020) PRAPARE - Transportation Lack of Transportation (Medical): No Lack of Transportation (Non-Medical): No Physical Activity: Not on file Stress: Not on file Social Connections: Not on file Interpersonal Safety: Not on file Review of Systems Review of Systems Constitutional: Negative for decreased appetite, fever and weight loss. Eyes: Negative for blurred vision and double vision. Cardiovascular: Negative for chest pain, leg swelling and palpitations. Respiratory: Negative for cough, shortness of breath and wheezing. Hematologic/Lymphatic: Negative for bleeding problem. Does not bruise/bleed easily. Musculoskeletal: Positive for joint pain. Negative for arthritis, back pain and myalgias. Gastrointestinal: Negative for abdominal pain, constipation, diarrhea, nausea and vomiting. Genitourinary: Negative for dysuria, hematuria and pelvic pain. Neurological: Positive for dizziness and light-headedness. Psychiatric/Behavioral: Negative for altered mental status and depression. CARDIOVASCULAR: Please review HPI. Physical Examination General appearance: Awake, Alert, oriented X 3. Well developed, well nourished. Pleasant. Accompanied by Kraig. HEENT: Bilateral conjunctiva clear. Neck: No JVD, no carotid bruits. Chest: Clear bilaterally. No chest wall tenderness. No rhonchi or wheezing. CVS: Regular rate and rhythm, no S3 or S4 gallop, no murmur or rubs or clicks. Abdomen: Soft, non-tender. Extremities: No cyanosis or clubbing or leg edema. No calf tenderness. Pulses: Bilaterally symmetrical and intact radial pulses. Neuro: Able to move all 4 extremities. Grossly non focal with no new deficit. Psychiatric: Appropriate mood, memory and judgement. VITAL SIGNS: BP 110/80 Pulse 59 Ht 170.2 cm (5' 7 ) Wt 59.9 kg (132 lb) BMI 20.67 kg/m No orders of the defined types were placed in this encounter. There are no discontinued medications. Electrical: Cardioversion September 2022 Impression/plan: Successful external cardioversion. Will obtain 12 lead ECG document her rhythm in sinus. Discontinue verapamil however continue Eliquis and Toprol. Will have her follow-up in 6-8 weeks with EP nurse practitioner to see how she is doing if she has remained in sinus rhythm will pursue that however if she has recurrence we can consider left atrial ablation with antiarrhythmic or antiarrhythmic by self. 2D echocardiogram July 2022: Left Ventricle: Systolic function is low normal to mildly decreased with an ejection fraction of 50-55%. The quantitative EF by 2D Hamilton biplane is 46%. Aortic Valve: There is mild regurgitation. There is no evidence of aortic valve stenosis. Mitral Valve: The valve has been repaired with an annular ring. There is mild to moderate regurgitation. Tricuspid Valve: s/p Tricuspid valve repair. There is mild regurgitation. Holter monitor August 2022: 1. Persistent atrial fibrillation with average ventricular rate of 87 beats per minute. Heart rate 54-116 beats per minute. 2. No pauses. 3. PVCs. Rare. 4. No VT. 5. Patient reported events correlated with atrial fibrillation with heart rate 84-111 beats per minute. 2 D Echocardiogram Nov 2019: Left Ventricle: Systolic function is normal with an ejection fraction of 55-60%. Left Ventricle: There is moderate increased wall thickness/hypertrophy. Left Ventricle: Diastolic function assessment is indeterminate. Lateral E' is 4.97 cm/s. Medial E' is 5.95 cm/s. Aortic Valve: The aortic valve is trileaflet. The leaflets are mildly calcified. Aortic Valve: There is mild regurgitation. There is no evidence of aortic valve stenosis. Mitral Valve: The valve has been repaired with an #30 mm Lan-Soto annular ring. Mitral Valve: There is mild to moderate regurgitation. There is no evidence of mitral valve stenosis. Two regurgitant jets noted. Tricuspid Valve: Tricuspid valve has been repaired with #28 mm Tri-Ad, appears to be normal. Tricuspid Valve: There is trace regurgitation. There is no evidence of tricuspid valve stenosis. Pulmonic Valve: There is mild regurgitation. There is no evidence of pulmonic valve stenosis. Consider transesophageal echocardiogram for better evaluation of mitral valve regurgitation. Please correlate clinically. CT Angio of coronaries 2015: Impression: 1. No significant coronary artery calcification or stenosis seen. 2. Note is made of annular calcification within region of mitral valve. 3. Small amount of soft plaque seen within proximal first diagonal branch which does not cause significant stenosis. Cardiac cath Apr 2018: Normal coronaries, normal LVEF. IMPRESSIONS/PLAN: 1. 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 using a #30 mm Lan-Soto annuloplasty ring Jun 07, 2018 (Dr Marysol Martinez at [facility]) 2. 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 May 2018 at [facility] 3. History of surgical Maze procedure May 2018 at [facility] 4. Paroxysmal atrial fibrillation (CMS-HCC) Mitral and tricuspid valve disease requiring a complex mitral valve repair using a #30 mm Lan-Soto annuloplasty ring, tricuspid valve repair using a #28 mm Tri-Ad annuloplasty ring, and MAZE procedure as with left atrial appendage ligation with Dr. Eduin Martinez on July 07, 2018 complicated by lethargy and inability to wean off the ventilator initially, dysphagia, left upper extremity weakness/left hand twitching and weakness, epistaxis, acute ischemia involving the MCA territory on Abnormal MRI of the brain May 10, 2018, residual left hand problems since open heart surgery and post CVA, normal coronaries, normal LVEF on cardiac cath Apr 2018, mild to moderate MR, mild TR, mild aortic regurgitation, LVEF 50-55% on 2D echocardiogram July 2022, rare PVCs, rare PACs, abnormal EKG, lupus erythematosus, Raynaud's phenomenon ( left hand hard to get get warmer ever, less with right hand and feet , sees Dr Kevin Suárez, Rheumatolgist), normal carotid doppler Nov 2018, other problems as charted. No active angina or fluid overload or bleeding or syncope. Retired Teacher. Reviewed most recent 2D echocardiogram and Holter monitor in July/August 2022 and subsequent successful electrical cardioversion September 2022 as documented. Also reviewed test lab technician, Dr. Alber Castro's most recent office visit note from January 2023. As patient remains stable overall cardiac-le, will continue on current cardiac medications along with continued aggressive cardiac risk factor modification. Follow-up from general cardiology standpoint with me in 8 months or sooner as needed. Thank you. TODAYS ORDERS No orders of the defined types were placed in this encounter. FOLLOW UP Return in about 8 months (around 11/17/2023) for Recheck - with RKA only. PCP: Aline Villalba MD Referring Physician: Aline Villalba MD [address] [address] Aline Ferrari MD, [facility] documented in this encounter [facility] [employer] [facility] 03-18-2023 Instructions Aline Ferrari MD - 03/18/2023 12:00 PM EST Reviewed most recent 2D echocardiogram and Holter monitor in August 2022 and subsequent successful electrical cardioversion September 2022 as documented. Also reviewed test lab technician, Dr. Alber Castro's most recent office visit note from January 2023. As patient remains stable overall cardiac-le, will continue on current cardiac medications along with continued aggressive cardiac risk factor modification. Follow-up from general cardiology standpoint with me in 8 months or sooner as needed. documented in this encounter [facility] 03-17-2023 Miscellaneous Notes Formattin g of this note might be different from the original. Called patient to remind them to bring their most current copy of their medication list with them to their appt. Patient verbalizes understanding. documented in this encounter [facility] [employer] 03-17-2023 Telephone encount er Note Called patient to remind them to bring their most current copy of their medication list with them to their appt. Patient verbalizes understanding. [facility] 06-07-2018 Evaluation note Diagnosis 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 using a #30 mm Lan-Soto annuloplasty ring Jun 07, 2018 (Dr Marysol Martinez at [facility])- Primary Other postprocedural status 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 May 2018 at [facility] Other postprocedural status History of surgical Maze procedure May 2018 at [facility] Paroxysmal atrial fibrillation (CMS-HCC) Atrial fibrillation [facility] Diagnosis Ischemic stroke of frontal lobe (HCC) documented in this encounter [employer] Phone: evaluation note* Diagnosis Atrial flutter with rapid ventricular response (CMS-HCC) Atypical atrial flutter (CMS-HCC) documented in this encounter [facility]* Diagnosis Chronic left shoulder pain- Primary Pain in joint, shoulder region documented in this encounter [facility]* Diagnosis Encounter for immunization- Primary documented in this encounter [facility]* Diagnosis Paroxysmal atrial fibrillation (CMS-HCC)- Primary Atrial fibrillation Nonrheumatic mitral (valve) insufficiency 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 using a #30 mm Lan-Soto annuloplasty ring Jun 07, 2018 (Dr Marysol Martinez at [facility]) Other postprocedural status 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 May 2018 at [facility] Other postprocedural status History of surgical Maze procedure May 2018 at [facility] documented in this encounter [facility]* Diagnosis Atypical atrial flutter (CMS-HCC)- Primary Paroxysmal atrial fibrillation (CMS-HCC) Atrial fibrillation History of CVA (cerebrovascular accident) Transient ischemic attack (TIA), and cerebral infarction without residual deficits Essential hypertension Unspecified essential hypertension Essential hypertension- Primary Unspecified essential hypertension Atypical atrial flutter (CMS-HCC) Atrial flutter with rapid ventricular response (CMS-HCC) [facility] filed[facility] filedocumented in [facility] filedocumented in this encounter [facility]ocumented in this [facility] filedocumented in this [facility] filedocumented in this encounter [facility] filedocumented in this encounter [facility] Summary Purpose Family History No Family History Records FoundNo Family History Records FoundNo Family History Records FoundNo Family History Records FoundNo Family History Records FoundNo Family History Records FoundNo Family History Records Found Advance Directives No Advanced Directives Records FoundDocuments on File Type Date Recorded Patient Informatics Pharmacist Expl anation Advance Directives and Living Will Power of Gas Appliance Repairer Documents on File Type Date Recorded Patient Informatics Pharmacist Expl anation ACP-Advance Directive ACP-Power of Gas Appliance Repairer Documents on File Type Date Recorded Patient Informatics Pharmacist Expl anation Living Will 06/02/2021 9:25 AM Additional Source Comments INFORMATION SOURCE (unrecogn ized section and content) DATE CREATED AUTHOR 07/09/2018 [facility] DATE CREATED AUTHOR AUTHOR'S ORGANIZ ATION 10/02/2018 [facility] DATE CREATED AUTHOR AUTHOR'S ORGANIZ ATION 10/08/2020 [facility] DATE CREATED AUTHOR AUTHOR'S ORGANIZ ATION 02/20/2022 [facility] DATE CREATED AUTHOR AUTHOR'S ORGANIZ ATION 12/11/2023 [facility] DATE CREATED AUTHOR AUTHOR'S ORGANIZ ATION 03/12/2024 [facility] DATE CREATED AUTHOR AUTHOR'S ORGANIZ ATION 03/13/2024 [facility] Reason for Visit (unrecogniz ed section and content) Reason Onset Date Comments Med Refill 03/05/2023 Reason Comments Follow-up 6 months Reason Comments Follow-up Pt c/o upper L side back pain/sore throat x one month Reason Onset Date Comments Med Refill 05/10/2023 Reason Comments Follow-up Atrial Flutter Reason Comments Med Refill Care Teams (unrecognized sec tion and content) Instrumental Teacher Relationship Specialty Start Date End Date Aline Villalba MD [address] [address] PCP - General Internal Medicine 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 Start Date End Date Aline Villalba MD [address] [address] PCP - General Internal Medicine 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 Start Date End Date Aline Villalba MD [address] [address] PCP - General Internal Medicine 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 Start Date End Date Aline Villalba MD [address] [address] PCP - General Internal Medicine 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 Start Date End Date Aline Villalba MD [address] [address] PCP - General Internal Medicine 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 Start Date End Date Aline Villalba MD [facility] [address] [address] PCP - General Internal Medicine 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 Start Date End Date Aline Villalba MD [address] [address] PCP - General Internal Medicine 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 Start Date End Date Aline Villalba MD [address] [address] PCP - General Internal Medicine 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 This clinical summary was aggregated from multiple sources. Caution should be exercised in using it in the provision of clinical care. This summary normalizes information from multiple sources, and as a consequence, information in this document may materially change the coding, format and clinical context of patient data. In addition, data may be omitted in some cases. CLINICAL DECISIONS SHOULD BE BASED ON THE PRIMARY CLINICAL RECORDS. [facility] provides no warranty or guarantee of the accuracy or completeness of information in this document.
== END 2024-03-13 10:01 | disposition home or self-care (01) ==
LOC: MAMMO 10:00
DX: Z12.31 Encounter for screening mammogram for malignant neoplasm of breast (principal); Z80.0 Family history of malignant neoplasm of digestive organs
CPT/HCPCS: 77063; 77067